=== PATIENT | female | born 1985 | race Caucasian/White ===

== ENCOUNTER 2016-04-23 09:00 | Emergency (ER) | payer OTHER ==
--- NOTE | 2016-04-23 11:26 | RAD ---
INDICATION: Cough. COMPARISON: Comparison is made with a prior chest x-ray study from March 04, 2016. TECHNIQUE: Dual-energy PA and lateral views of the chest were obtained. FINDINGS: The heart is within normal limits in size. Mediastinal and hilar contours appear within normal limits. The lungs are clear. There has been interval resolution of the previously noted right middle lobe infiltrate. No pleural effusion is seen. IMPRESSION: NO EVIDENCE FOR ACUTE FINDING, INTERVAL RESOLUTION OF RIGHT MIDDLE LOBE INFILTRATE.
[2016-04-23] MEDS ORDERED: Ketorolac INJ* 30 MG/ML 1 ML VIAL IV PUSH ONE (11:49)
[2016-04-23] MEDS ORDERED: Ketorolac INJ* 30 MG/ML 1 ML VIAL ONE (11:52)
[2016-04-23 11:58] LABS: Hematocrit 39 % (35-47); Mean Corpuscular HGB Conc 33 g/dl (31-36); Mean Corpuscular Hemoglobin 30 pg (27-31); Mean Corpuscular Volume 91 fL (80-97); Mean Platelet Volume 9 um3 (7.4-10.4); Red Blood Count 4.32 10^6/ul (4.0-5.4); Red Cell Distribution Width 15 % (10.5-15); White Blood Count 3.7 10^3/ul (3.5-10.8)
[2016-04-23 12:10] LABS: BUN/Creatinine Ratio 12.2 (8-20); Calcium 8.6 mg/dL (8.6-10.3); EGFR African American 106.8 (>60); Globulin 2.5 g/dL (2-4); Potassium 3.3 mmol/L (3.5-5.0); Total Bilirubin 0.4 mg/dL (0.2-1.0); Total Protein 6.5 g/dL (6.4-8.9)
[2016-04-23] MEDS ORDERED: Iohexol 350* (CONTRAST) 500 ML MDV IV ONE (13:04)
--- NOTE | 2016-04-23 14:22 | RAD ---
INDICATION: Chest pain. Short of breath. Evaluate for pulmonary embolus. COMPARISON: Chest x-ray April 23, 2016; CT chest March 25, 2016 TECHNIQUE: Axial source images were obtained from the thoracic inlet to the hemidiaphragms following administration of [address] angiographic technique was utilized. Coronal and sagittal reconstructed images were acquired. CHEST FINDINGS: Neck/thyroid: The visualized neck to include the thyroid appear normal. Chest wall: There are no acute abnormalities of the bony thorax or chest wall. There is no supraclavicular, infraclavicular, or axillary lymphadenopathy. Lungs : There are no pulmonary parenchymal masses or infiltrates. The pulmonary interstitium appears normal. There are no endobronchial lesions. Cardiomediastinal structures: There is no CT evidence of acute pulmonary embolic disease. The heart is normal in size. There is no pericardial effusion. There is no evidence of aortic aneurysm or dissection. There is no mediastinal or hilar adenopathy. The esophagus appears normal. Pleura : There are no pleural-based masses or effusions. Other: None. IMPRESSION: NO CT EVIDENCE OF ACUTE PULMONARY EMBOLIC DISEASE. LUNGS CLEAR.
[2016-04-23] MEDS ORDERED: predniSONE TAB* 20 MG PO ONE (14:25)
[2016-04-23] MEDS ORDERED: Albuterol HFA INHALER* 8 gm MDI INH ONE (14:25)
--- NOTE | 2016-04-23 15:19 | ED ---
ILazaro,Franchesca, scribed for Orestes Shine MD on 04/23/16 at 1229 . Shortness of Breath - HPI Summary HPI Summary: This 30 y/o female presents to ED for SOB and CP since a week ago. CP is worse with inspiration and is diffuse throughout chest. She also reports subjective fever, chills, diaphoresis, and productive cough yellow/brown. Pt reports that she was dx with PNA at [facility] a week ago. PMHx includes asthma, GERD, and chronic pain disorder. Pt is current everyday smoker. FHx is negative for any bleeding disorder. - History of Current Complaint Chief Complaint: EDShortnessOfBreath Time Seen by Provider: 04/23/16 09:57 Hx Obtained From: Patient Onset/Duration: Gradual Onset Current Severity: Mild Dyspnea At: Rest Associated Signs & Symptoms: Cough (Productive), Chest Pain Unrelated to Cough - Allergy/Home Medications Allergies/Adverse Reactions: Allergies Allergy/AdvReac Type Severity Reaction Status Date / Time Adhesive Tape AdvReac Severe Rash Verified 04/23/16 09:04 Azithromycin [From Zithromax] AdvReac Intermediate Stomach Verified 04/23/16 09: 04 Cramps Penicillins AdvReac Intermediate UPset Verified 04/23/16 09:04 stomach Sulfa Drugs AdvReac Intermediate Stomach Verified 04/23/16 09:04 Cramps /GI upset cillins* AdvReac Intermediate Stomach Uncoded 04/23/16 09:04 Cramps / GI upset PMH/Surg Hx/FS Hx/Imm Hx Endocrine/Hematology History: Denies: Hx Anticoagulant Therapy, Hx Diabetes, Hx Thyroid Disease Cardiovascular History: Denies: Hx Hypertension, Hx Pacemaker/ICD Respiratory History: Reports: Hx Asthma Denies: Hx Chronic Obstructive Pulmonary Disease (COPD) GI History: Denies: Hx Gall Bladder Disease, Hx Gastroesophageal Reflux Disease, Hx Ulcer History: Denies: Hx Renal Disease Musculoskeletal History: Reports: Hx Tendonitis - hands - followed by [facility], Other Musculoskeletal History - fibromyalgia, chronic pain syndrome Sensory History: Reports: Hx Contacts or Glasses Denies: Hx Hearing Aid Opthamlomology History: Reports: Hx Contacts or Glasses Neurological History: Denies: Hx Dementia, Hx Seizures Psychiatric History: Reports: Hx Panic Disorder - Surgical History Surgery Procedure, Year, and Place: Right Hand Carpal Tunnel surgery Infectious Disease History: No Infectious Disease History: Denies: Hx Clostridium Difficile, Hx Hepatitis, Hx Human Immunodeficiency Virus (HIV), Hx of Known/Suspected MRSA, Hx Shingles, Hx Tuberculosis, Hx Known/ Suspected VRE, Hx Known/Suspected VRSA, History Other Infectious Disease, Traveled Outside the [place] in Last 30 Days - Family History Known Family History: Positive: Other - Parkinson's and Fibromyalgia - Social History Alcohol Use: None Substance Use Type: Reports: None Hx Tobacco Use: Yes Smoking Status (MU): Current Every Day Smoker Type: Cigarettes Amount Used/How Often: less than 1/2 ppd Length of Time of Smoking/Using Tobacco: 6 years Have You Smoked in the Last Year: Yes Review of Systems Positive: Fever - subjective fever, Chills, Skin Diaphoresis Negative: Erythema Negative: Sore Throat Positive: Chest Pain Positive: Shortness Of Breath, Cough - productive with yellow/brown sputum Negative: dysuria, hematuria Negative: Edema Negative: Rash Neurological: Other - negative for dizziness All Other Systems Reviewed And Are Negative: Yes Physical Exam - Summary Physical Exam Summary: Constitutional: Well-developed, Well-nourished, Alert. (-) Distressed Skin: Warm, Dry HENT: Normocephalic; Atraumatic Eyes: Conjunctiva normal Neck: Musculoskeletal ROM normal neck. (-) JVD, (-) Stridor, (-) Tracheal deviation Cardio: Rhythm regular, rate normal, Heart sounds normal; Intact distal pulses; The pedal pulses are 2+ and symmetric. Radial pulses are 2+ and symmetric. (-) Murmur Pulmonary/Chest wall: Effort normal. (-) Respiratory distress, (-) Wheezes, (-) Rales Abd: Soft, (-) Tenderness, (-) Distension, (-) Guarding, (-) Rebound Musculoskeletal: (-) Edema Lymph: (-) Cervical adenopathy Neuro: Alert, Oriented x3 Psych: Mood and affect Normal Triage Information Reviewed: Yes Vital Signs On Initial Exam: Initial Vitals Temp Pulse Resp BP Pulse Ox 97.4 F 81 15 95/57 100 04/23/16 09:04 04/23/16 09:04 04/23/16 09:04 04/23/16 09:04 04/23/16 09:04 Vital Signs Reviewed: Yes - [place] Coma Scale Coma Scale Total: 15 Diagnostics - Vital Signs Vital Signs Temp Pulse Resp BP Pulse Ox 04/23/16 11:00 67 18 100 04/23/16 10:30 71 22 85/52 98 04/23/16 10:00 73 26 99/53 97 04/23/16 09:59 98.7 F 74 16 99/53 98 04/23/16 09:45 109 98 04/23/16 09:44 111/76 04/23/16 09:04 97.4 F 81 15 95/57 100 - Laboratory Result Diagrams: 04/23/16 09:45 04/23/16 09:45 Lab Statement: Any lab studies that have been ordered have been reviewed, and results considered in the medical decision making process. - Radiology CXR Xray Interpretation: No Acute Changes - Interval resolution of right middle lobe infiltrate Radiology Interpretation Completed By: Radiologist - CT CTA Chest/thorax CT Interpretation: No Acute Changes CT Interpretation Completed By: Radiologist Course/Dx - Course Assessment/Plan: This 30 y/o female presents to ED for persistent URI with cough , dyspnea, and CP since her dx of PNA a week ago. Pt states that her URI has been persistent without any resolution in spite of abx tx. CXR indicates interval resolution of right middle lobe infiltrate. Elevated D-dimer is indicated in blood work. CTA chest/thorax has been ordered in order to r/o PE, and is indicated negative. Pt is discharged with nebulizer solution and outpatient f/u with her primary care provider. - Diagnoses Provider Diagnoses: Bronchitis Discharge - Discharge Plan Condition: Stable Disposition: HOME Patient Education Materials: Acute Bronchitis (ED), Ipratropium/Albuterol (By breathing) Referrals: Gus Liu MD [Primary Care Provider] - 2 Days The documentation as recorded by the Lazaro garcia Soohyun accurately reflects the service I personally performed and the decisions made by , Orestes Shine MD.
[2016-04-23 15:55] VITALS: BP 104/64
== END 2016-04-23 15:41 | disposition home or self-care (01) ==
LOC: ED 09:00
DX: J40 Bronchitis, not specified as acute or chronic (principal); F17.210 Nicotine dependence, cigarettes, uncomplicated; J45.909 Unspecified asthma, uncomplicated; K21.9 Gastro-esophageal reflux disease without esophagitis; G89.29 Other chronic pain; Z88.0 Allergy status to penicillin; Z88.2 Allergy status to sulfonamides
CPT/HCPCS: 36415; 71020; 71275; 80053; 84484; 85027; 85379; 94640; 96374; 99283; A9270-GY; J1885; J7512; Q9967

== ENCOUNTER 2017-06-19 14:13 | Emergency (ER) | payer OTHER ==
[2017-06-19 15:08] VITALS: BP 140/75
[2017-06-19 15:28] LABS: Urine Appearance Cloudy; Urine Blood 3+ (Negative); Urine Color Yellow; Urine Ketones Trace (Negative); Urine Protein 2+(100 mg/dL) (Negative); Urine Specific Gravity 1.027 (1.010-1.030); Urine Urobilinogen Negative (Negative)
[2017-06-19] MEDS ORDERED: Metoclopramide IV* 5 MG/ML 2 ML VIAL IV SLOW PU ONE (15:39)
[2017-06-19] MEDS ORDERED: Morphine INJ* 4 MG/ML 1 ML SYRINGE (NEW SYRINGE VERSION) IV ONE (15:39)
--- NOTE | 2017-06-19 15:50 | RAD ---
INDICATION: Left lower quadrant pain COMPARISON: None TECHNIQUE: Longitudinal and transverse transvaginal scans of the pelvis were obtained. FINDINGS: Uterus: The uterus is normal in size. There are no focal masses. The uterus measures 9.4 x 4.6 x 5.0 cm. Endometrial thickness: The endometrial thickness is measured at 0.3 cm. . Free fluid: There is no significant free fluid . Ovaries: The ovaries are normal in size. The right ovary measures 4.4 x 3.1 x 3.4 cm. The left ovary measures 4.5 x 3.0 x 2.8 cm. There are multiple small follicles. Doppler interrogation demonstrates flow to each ovary. Other: None IMPRESSION: NORMAL PELVIC SONOGRAM.
[2017-06-19 16:16] LABS: ABS Basophils 0 10^3/ul (0-0.2); ABS Eosinophils 0 10^3/ul (0-0.6); ABS Monocytes 0.7 10^3/ul (0-0.8); ABS Neutrophils 6.6 10^3/ul (1.5-7.7); ABS Nucleated RBC 0 10^3/ul; Eosinophil % 0.4 % (0-6); Hematocrit 37 % (35-47); Hemoglobin 12.4 g/dl (12.0-16.0); Lymphocyte % 11.7 % (25-47); Mean Corpuscular HGB Conc 33 g/dl (31-36); Mean Corpuscular Hemoglobin 30 pg (27-31); Mean Corpuscular Volume 89 fL (80-97); Mean Platelet Volume 8 um3 (7.4-10.4); Nucleated Red Blood Cells % 0; Platelet Count 188 10^3/ul (150-450); Red Cell Distribution Width 17 % (10.5-15); White Blood Count 8.3 10^3/ul (3.5-10.8)
--- NOTE | 2017-06-19 17:08 | RAD ---
INDICATION: Left flank abdominal pain and left lower quadrant pain. COMPARISON: Comparison is made with a prior pelvic ultrasound from June 19, [address] of the abdomen and pelvis from September 14, 2015. TECHNIQUE: A CT scan of the abdomen and pelvis was performed without intravenous or oral contrast. Contiguous axial sections were obtained from the lung bases through the symphysis pubis. Images were reconstructed in the coronal and sagittal planes. FINDINGS: There is mild dependent bilateral lower lobe subsegmental atelectasis. No pleural effusion is present. The liver and spleen are within normal limits in size without significant focal abnormality on this noncontrast study. No calcified gallstones are seen. The pancreas appears to be within normal limits in size. The adrenal glands and kidneys are normal in size. No renal calculi or hydronephrosis is seen. The aorta is normal in caliber without significant calcific plaque. No significant enlarged retroperitoneal lymph nodes are seen. The stomach, small and large bowel appear nondistended. The appendix is within normal limits. There is no evidence for diverticulitis or colitis. The uterus is anteverted and normal in size. No free intraperitoneal air or fluid is seen. No significant focal osseous abnormality is seen. IMPRESSION: NO EVIDENCE FOR ACUTE FINDING OR CAUSE FOR THE PATIENT'S ABDOMINAL PAIN IS SEEN.
--- NOTE | 2017-06-19 17:28 | ED ---
GI/ HPI - HPI Summary HPI Summary: 31-year-old female presents with left-sided flank pain and left lower quadrant pain for the past couple hours. She states her pain is increased in intensity but since arriving here has decreased. She states she admits to urgency and frequency. She denies every having this pain before. States she has a history of kidney stones. She denies any previous surgeries. She denies any nausea, vomiting. She denies any fevers. She denies any chest pain or shortness of breath. She states she has been having a period for the past month. She denies any history of STDs. She states she did have PID when she was younger. She denies any chance of . She states pain is sharp in nature. - History of Current Complaint Chief Complaint: EDAbdPain Time Seen by Provider: 06/19/17 14:24 Stated Complaint: ABD/PELVIC PAIN Hx Last Menstrual Period: ended August 30 Pain Intensity: 10 - Allergy/Home Medications Allergies/Adverse Reactions: Allergies Allergy/AdvReac Type Severity Reaction Status Date / Time Adhesive Tape AdvReac Severe Rash Verified 04/23/16 09:04 MS Azithromycin AdvReac Intermediate Stomach Verified 04/23/16 09:04 [From Zithromax] Cramps MS Penicillins [Penicillins] AdvReac Intermediate UPset Verified 04/23/16 09:04 stomach MS Sulfa Drugs [Sulfa Drugs] AdvReac Intermediate Stomach Verified 04/23/16 09: 04 Cramps /GI upset cillins* AdvReac Intermediate Stomach Uncoded 04/23/16 09:04 Cramps / GI upset PMH/Surg Hx/FS Hx/Imm Hx Endocrine/Hematology History: Denies: Hx Anticoagulant Therapy, Hx Diabetes, Hx Thyroid Disease Cardiovascular History: Denies: Hx Hypertension, Hx Pacemaker/ICD Respiratory History: Reports: Hx Asthma Denies: Hx Chronic Obstructive Pulmonary Disease (COPD) GI History: Denies: Hx Gall Bladder Disease, Hx Gastroesophageal Reflux Disease, Hx Ulcer History: Denies: Hx Renal Disease Musculoskeletal History: Reports: Hx Tendonitis - hands - followed by [facility], Other Musculoskeletal History - fibromyalgia, chronic pain syndrome Sensory History: Reports: Hx Contacts or Glasses Denies: Hx Hearing Aid Opthamlomology History: Reports: Hx Contacts or Glasses Neurological History: Denies: Hx Dementia, Hx Seizures Psychiatric History: Reports: Hx Panic Disorder - Surgical History Surgery Procedure, Year, and Place: bilat [facility] Infectious Disease History: No Infectious Disease History: Denies: Hx Clostridium Difficile, Hx Hepatitis, Hx Human Immunodeficiency Virus (HIV), Hx of Known/Suspected MRSA, Hx Shingles, Hx Tuberculosis, Hx Known/ Suspected VRE, Hx Known/Suspected VRSA, History Other Infectious Disease, Traveled Outside the [place] in Last 30 Days - Family History Known Family History: Positive: Other - Parkinson's and Fibromyalgia - Social History Alcohol Use: None Substance Use Type: Reports: None Hx Tobacco Use: Yes Smoking Status (MU): Current Every Day Smoker Type: Cigarettes Amount Used/How Often: less than 1/2 ppd Length of Time of Smoking/Using Tobacco: 6 years Have You Smoked in the Last Year: Yes Review of Systems Negative: Fever Negative: Chest Pain Negative: Shortness Of Breath Positive: Abdominal Pain Positive: flank pain. Negative: dysuria All Other Systems Reviewed And Are Negative: Yes Physical Exam Triage Information Reviewed: Yes Vital Signs On Initial Exam: Initial Vitals Temp Pulse Resp BP Pulse Ox 98.1 F 70 26 143/80 100 06/19/17 14:15 06/19/17 14:15 06/19/17 14:15 06/19/17 14:15 06/19/17 14:15 Vital Signs Reviewed: Yes Appearance: Positive: Well-Appearing Skin: Positive: Warm, Dry Head/Face: Positive: Normal Head/Face Inspection Eyes: Positive: Normal, EOMI, JAHAIRA, Conjunctiva Clear ENT: Positive: Normal ENT inspection, Pharynx normal, TMs normal Respiratory/Lung Sounds: Positive: Clear to Auscultation, Breath Sounds Present Cardiovascular: Positive: Normal, RRR Abdomen Description: Positive: Soft, CVA Tenderness (L), Other: - tenderness LLQ Bowel Sounds: Positive: Present Musculoskeletal: Positive: Normal Neurological: Positive: Normal Psychiatric: Positive: Normal Diagnostics - Vital Signs Vital Signs Temp Pulse Resp BP Pulse Ox 06/19/17 16:16 18 06/19/17 14:58 97.7 F 78 18 140/75 100 06/19/17 14:15 98.1 F 70 26 143/80 100 - Laboratory Lab Results: Lab Results 06/19/17 06/19/17 06/19/17 Range/Units 14:42 14:42 14:42 WBC Cancelled RBC Cancelled Hgb Cancelled Hct Cancelled MCV Cancelled MCH Cancelled MCHC Cancelled RDW Cancelled Plt Count Cancelled MPV Cancelled Neut % (Auto) Cancelled Lymph % (Auto) Cancelled [place] % (Auto) Cancelled Eos % (Auto) Cancelled Baso % (Auto) Cancelled Absolute Neuts (auto) Cancelled Absolute Lymphs (auto) Cancelled Absolute Monos (auto) Cancelled Absolute Eos (auto) Cancelled Absolute Basos (auto) Cancelled Absolute Nucleated RBC Cancelled CBC Comment Cancelled Nucleated RBC % Cancelled Diff Slide Review Cancelled Hypogranular Platelets Cancelled Clumped Platelets Cancelled Large Platelets Cancelled Giant Platelets Cancelled Sodium 139 (133-145) mmol/L Potassium TNP Chloride 108 (101-111) mmol/L Carbon Dioxide 18 L (22-32) mmol/L Anion Gap 13 H (2-11) mmol/L BUN 13 (6-24) mg/dL Creatinine 0.86 (0.51-0.95) mg/dL Est GFR ( Amer) 100.3 (>60) Est GFR (Non-Af Amer) 78.0 (>60) BUN/Creatinine Ratio 15.1 (8-20) Glucose 112 H (70-100) mg/dL Calcium 9.5 (8.6-10.3) mg/dL Total Bilirubin 0.80 (0.2-1.0) mg/dL AST TNP ALT 16 (7-52) U/L Alkaline Phosphatase 49 (34-104) U/L C-React Prot High Sens 0.39 mg/L Total Protein 7.1 (6.4-8.9) g/dL Albumin 4.5 (3.2-5.2) g/dL Globulin 2.6 (2-4) g/dL Albumin/Globulin Ratio 1.7 (1-3) Lipase 15 (11.0-82.0) U/L Beta HCG, Quant 0.70 mIU/mL Urine Color Yellow Urine Appearance Cloudy Urine pH 8.0 (5-9) Ur Specific [place] 1.027 (1.010-1.030) Urine Protein 2+(100 mg/dl) A (Negative) Urine Ketones Trace A (Negative) Urine Blood 3+ A (Negative) Urine Nitrate Negative (Negative) Urine Bilirubin Negative (Negative) Urine Urobilinogen Negative (Negative) Ur Leukocyte Esterase Trace A (Negative) Urine WBC (Auto) Trace(0-5/hpf) (Absent) Urine RBC (Auto) 3+(>10/hpf) A (Absent) Ur Squamous Epith Cells Present A (Absent) Urine Bacteria Absent (Absent) Urine Glucose Negative (Negative) 06/19/17 06/19/17 Range/Units 16:07 16:07 WBC 8.3 RBC 4.20 Hgb 12.4 Hct 37 MCV 89 MCH 30 MCHC 33 RDW 17 H Plt Count 188 MPV 8 Neut % (Auto) 79.7 Lymph % (Auto) 11.7 L [place] % (Auto) 7.9 H Eos % (Auto) 0.4 Baso % (Auto) 0.3 Absolute Neuts (auto) 6.6 Absolute Lymphs (auto) 1.0 Absolute Monos (auto) 0.7 Absolute Eos (auto) 0 Absolute Basos (auto) 0 Absolute Nucleated RBC 0 CBC Comment Nucleated RBC % 0 Diff Slide Review Hypogranular Platelets Clumped Platelets Large Platelets Giant Platelets Sodium (133-145) mmol/L Potassium 4.0 Chloride (101-111) mmol/L Carbon Dioxide (22-32) mmol/L Anion Gap (2-11) mmol/L BUN (6-24) mg/dL Creatinine (0.51-0.95) mg/dL Est GFR ( Amer) (>60) Est GFR (Non-Af Amer) (>60) BUN/Creatinine Ratio (8-20) Glucose (70-100) mg/dL Calcium (8.6-10.3) mg/dL Total Bilirubin (0.2-1.0) mg/dL AST 23 ALT (7-52) U/L Alkaline Phosphatase (34-104) U/L C-React Prot High Sens mg/L Total Protein (6.4-8.9) g/dL Albumin (3.2-5.2) g/dL Globulin (2-4) g/dL Albumin/Globulin Ratio (1-3) Lipase (11.0-82.0) U/L Beta HCG, Quant mIU/mL Urine Color Urine Appearance Urine pH (5-9) Ur Specific [place] (1.010-1.030) Urine Protein (Negative) Urine Ketones (Negative) Urine Blood (Negative) Urine Nitrate (Negative) Urine Bilirubin (Negative) Urine Urobilinogen (Negative) Ur Leukocyte Esterase (Negative) Urine WBC (Auto) (Absent) Urine RBC (Auto) (Absent) Ur Squamous Epith Cells (Absent) Urine Bacteria (Absent) Urine Glucose (Negative) Result Diagrams: 06/19/17 16:07 06/19/17 16:07 Lab Statement: Any lab studies that have been ordered have been reviewed, and results considered in the medical decision making process. - CT abd CT Interpretation: No Acute Changes CT Interpretation Completed By: Radiologist - Ultrasound No standard instances Ultrasound Interpretation: No Acute Changes Ultrasound Interpretation Completed By: Radiologist GIGU Course/Dx - Course Course Of Treatment: 31-year-old female presents with left-sided flank pain and left lower quadrant pain for the past couple hours. She states her pain is increased in intensity but since arriving here has decreased. She states she admits to urgency and frequency. She denies every having this pain before. States she has a history of kidney stones. She denies any previous surgeries. She denies any nausea, vomiting. She denies any fevers. She denies any chest pain or shortness of breath. She states she has been having a period for the past month. She denies any history of STDs. She states she did have PID when she was younger. She denies any chance of . She states pain is sharp in nature. on exam CVA tenderness left. Left lower quadrant pain. Ultrasound normal. CT normal. Labs within normal limits. Explained could have passed a kidney stone and that would explain pain. We'll have follow-up with primary. Patient understands, agrees with plan. - Diagnoses Differential Diagnoses - Female: Ovarian Cyst, Urinary Tract Infection, Ureteral Calculi Provider Diagnoses: Abdominal pain Discharge - Discharge Plan Condition: Good Disposition: HOME Patient Education Materials: Acute Abdominal Pain (ED) Referrals: Gus Liu MD [Primary Care Provider] - Additional Instructions: Take Tylenol or ibuprofen for pain every 6 hours Follow up with primary within 5 days Return to ED if develop any new or worsening symptoms
== END 2017-06-19 17:42 | disposition home or self-care (01) ==
LOC: ED 14:13
DX: R10.2 Pelvic and perineal pain (principal); R10.9 Unspecified abdominal pain; F17.210 Nicotine dependence, cigarettes, uncomplicated
CPT/HCPCS: 36415; 74176; 76830; 80053; 81003; 81015; 83690; 84702; 85025; 86141; 87086; 87480; 87491; 87510; 87591; 87661; 96374; 96375; 99282; J2270; J2765

== ENCOUNTER 2017-10-18 09:20 | Emergency (ER) | payer OTHER ==
--- OUTSIDE RECORDS SUMMARY | 2017-10-18 10:03 | XMS REPORT ---
:1985 External Reference #:[id number] Author Organization [facility] Address [address] [place] [address] Phone [phone] Care Team Providers Name Role Phone Gus Liu MD Primary Care Physician Unavailable Payers Type Date Identification Numbers Payment Provider Subscriber Commercial Effective: Policy Number: [id number] Kal Borrero [address] 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 [employer] Cigarette Use Light tobacco smoker (10 or fewer cigarettes/day) ETOH Use Never used alcohol Recreational Drug Use Denies Drug Use Smoking Patient is a current smoker, smokes every day Exercise Type/Frequency Exercises regularly Exercise Type/Frequency Running Exercise Type/Frequency Strength Training Allergies, Adverse Reactions, Alerts Date Description Reaction Status Severity Comments 12/11/2002 Penicillin active upset stomach 09/22/2015 Sulfa active 09/22/2015 Azithromycin active 04/24/2016 Adhesives active Medications Medication Date Status Form Strength Qnty SIG Indications Ordering Provider Escitalopram 09/24 Active Tablets 10mg 90tab 1 by mouth F33.1 Gus s every day MD Noe Nicotine Step 09/03 Active Patches 7mg/24HR 30uni 1 patch daily Z72.0 Shawnti 24HR MICHAELLE Lugo-C Qvar 04/17 Active Aerosol 80mcg/Act 2unit inhale 2 s puffs by [place] mouth 2 times , per day for asthma Metronidazole 03/05 Active Cream 0.75% 90gm 1 apply to L71.9 affected area [place] twice a day , Nexplanon 08/06 Active Implant 68mg inserted September DAISY Gan Buspirone HCL 03/06 Active Tablets 15mg 60tab 1 tab by F41.9 Gus s mouth three [place] times a day , as needed for anxiety Proair HFA 01/02 Active Aerosol 108(90Bas 18uni 1-2 puffs R06.02 e) ts every 6 hours [place] mcg/Act as needed , Omeprazole [address] 20mg 30cap 1 by mouth Gus / s every day MD Noe Dexilant 09/[address] 60mg 30cap 1 tab by K25.9 Gus s mouth every [place] - day , 09/24 Nicotine Step 05/01 Hx Patches 14mg/24HR 30uni 1 daily every Z72.0 Gus 24HR ts morning Noe - , 09/03 Benzonatate 05/01 Hx Capsules 200mg 60cap 1 by mouth J06.9 Gus s three times a Heetder - day for cough , 09/03 Lexapro 03/05 Hx Tablets 10mg 30tab 1 tab by F41.9 Gus s mouth every [place] - morning , 09/03 Clindamycin 03/05 Hx Capsules 300mg 21cap take 1 J31.0 Gus HCL /2016 s capsule by [place] - mouth every 8 , 04/17 hours for days Oxycodone-Acet 11/06 Hx Tablets 5-325mg 20tab 1 by mouth K02.9 Gus aminophen s every 4 hours [place] - as needed , 03/05 severe pain /2016 Clindamycin 09/06 Hx Capsules 300mg 20cap 1 tab by K02.9 Gus HCL /2016 s mouth twice a [place] - day , 03/05 Nicotrol 09/06 Hx Inhaler 10mg 336un inhale 1 F17.210 Gus /2016 its cartridge [place] - inhaled , 03/05 orally repeatedly like a cigarette 16 times per day as needed for smoking cessation Pulmicort 09/06 Hx Aerosol 180mcg/Ac 1unit Inhale 1 puff Gus Flexhaler /2016 t s by mouth 2 [place] - times per day , 04/17 for asthma /2017 Clindamycin 08/06 Hx Capsules 300mg 40cap 1 tab by Denice HCL s mouth four Aleah, - times a day 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 08/06 Naprosyn 04/23 Hx Tablets 250mg 30tab Q8H prn For s Pain Scale - 6-10 08/06 Deltasone 04/23 Hx Tablets 50mg 5tabs Every Day - 08/06 Ventolin 04/23 Hx Nebulizer 0.083% 60uni Q4H ts - 08/06 Doxycycline 04/17 Hx Capsules 100mg 20cap 1 take by J18.1 Gus Hyclate s mouth capsule [place] - 2 times per , 08/06 day for days for infection Flonase 04/17 Hx Suspension 50mcg/Act 1unit inhale one J01.90 Gus Allergy Relief s spray in each [place] - nostril at , 08/06 bedtime Norgestimate-E 03/21 Hx Tablets 0.25-35mg 28tab Take daily as N92.0 Gus Estradiol /2015 -mcg s directed for [place] - 2 months , 08/06 Lexapro 03/06 Hx Tablets 10mg 30tab 1 tab by F41.9 Gus s mouth every [place] - morning , 08/06 Norgestimate-E 01/02 Hx Tablets 0.25-35mg 28tab Take daily as N92.0 Gus Estradiol /2015 -mcg s directed for [place] - 2 months , 03/06 Doxycycline 01/[address] 100mg 20tab Take 1 tablet Gus Hyclate s by mouth 2 [place] - times per day , 04/17 for 10 days /2016 for lower respiratory tract infection Tramadol HCL 10/18 Hx Tablets 50mg 30tab 1 tab by Gus s mouth three [place] - times a day , 01/11 as needed pain Tamsulosin HCL 10/18 Hx Capsules 0.4mg 14cap Take 1 Gus s capsule by [place] - mouth daily , 01/11 and urine Ciprofloxacin 09/21 Hx Tablets 500mg 20tab take 1 tablet N39.0 Gus HCL s by mouth [place] - every 12 , 03/06 hours for days for infection Nortriptyline 09/18 Hx Capsules 10mg Every Day Unknown - 08/06 Percocet 09/13 Hx Tablets 5-325mg 10tab Q6H prn For s Pain - 01/02 Valium 09/13 Hx Tablets 5mg 10tab Q6H prn For s Pain - 08/06 Zyrtec Allergy 08/28 Hx Tablets 10mg Every Day - 03/05 Paxil 10/13 Hx Tablets 20mg 30tab use 1 tab a Denice s day Reinaldo, - M.DLashonda 09/21 Excuse From 08/07 Hx patient is Denice Woods being treated Reinaldo, - for M.D. 08/16 mononucleosis . Excuse From 08/07 Hx patient was Denice Woods seen here for Reinaldo, - abdominal M.D. 08/16 pain. Excuse From 07/24 Hx patient was Denice Woods seen here for Reinaldo, - follow up M.D. 08/07 care. she may return to school on 07/25. Gentamycin 04/29 Hx Solution 3mg/ml 5ml 2 drops qid Denice Guerrero until clear Reinaldo - M.DLashonda 06/22 Excuse From 04/16 Hx out of school [phone] from:04-12-03 Valarie Adkins, 06/22 return to .D. school on:04-18-03 due to symptoms of flu Ortho Evra 02/17 Hx 3unit one patch Milagros Contraceptive /2002 s once per week A. Patch - for 3 weeks, Sara, 09/21 then one week [facility] /2015 without patch each month Ortho Evra 02/17 Hx 1unit use as Milagros Extra Patch /2002 s directed A. - Sara, 09/21 [facility] Metrogel 02/03 Hx Cream 70Gra one Milagros Vaginal Cream ms applicatorful A. - vaginally bid Sara, 06/22 x 5 days [facility] No School 02/03 Hx 01/27/03-01/07 Milagros due to A. - illness Sara, 06/22 [facility] Albuterol 12/24 Hx Inhaler 1unit two puffs up R06.02 Gus s to four times [place] - a day MD jose 01/02 Excuse From 09/08 Hx Out Of School [facility] From:09/07/02 Reinaldo, - M.D. 02/02 Return To School On:09/09/02 Bactrim DS 09/04 Hx Tablets 14tab One bid X 7 Roseann s Days P. - Blegen, 02/02 M.D. Excuse From 09/04 Hx Was Seen For [facility] Acute Visit Reinaldo, - For Abdominal M.D. 02/02 Pain Zoloft 04/15 Hx Tablets 50mg 30tab One qd Yeny Betty Sorensen NP 02/02 Excuse From 01/27 Hx She was seen [facility] for acute Soboroff, - problem M.D. 04/15 today. 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 - Blegen, 01/04 M.D. Zithromax 12/21 Hx Tablets 250mg 6tabs 2 On Day One, Then One qd Betty Horton X4 Days [employer] 01/04 gym excuse 12/21 Hx No Gym class this week Betty Horton NP 01/04 Amoxicillin 11/02 Hx 500 30uni One tid X 10 ts Days Less - , M.D. 01/04 Nortriptyline Hx Capsules 10mg 1 tab by Unknown HCL /0000 mouth every - night 03/06 Percocet Hx Tablets 5-325mg Unknown /0000 - 01/11 Valium Hx Tablets 2mg Unknown /0000 - 01/11 Levofloxacin Hx Tablets 750mg Unknown /0000 - 08/06 Albuterol Hx Nebulizer (2.5mg/3M Unknown Sulfate /0000 L) 0.083% - 08/06 Prednisone Hx Tablets 50mg Unknown /0000 - 08/06 Medications Administered in Office Medication Date Status Form Strength Qnty SIG Indications Ordering Provider TB,Intradermal Administered Injection Gus (PPD, Mantoux) 018 MD Noe TB,Intradermal Administered Injection Denice (PPD, Mantoux) 017 DAISY Gan Immunizations CPT Code Status Date Vaccine Lot # [id number] Given 04/17/2017 Pneumovax 23 (PPSV23) 65+ years or high risk 2 to [id number] 66 year old [address] Given 04/07/2012 Tdap (Adacel) 92647 Refused 03/05/2017 Influenza Virus Vaccine, Quadrivalent, 3 Yr > Quad , Preserv Free Vital Signs Date Vital Result Comment 09/24/2017 Weight 260.00 lb Weight in kg's 117.936 BP Systolic 120 mmHg BP Diastolic 75 mmHg Heart Rate 80 /min Body Temperature 97.7 F O2 % BldC Oximetry 98 % 09/03/2017 Weight 258.00 lb Weight in kg's 117.029 BP Systolic 100 mmHg BP Diastolic 68 mmHg Heart Rate 80 /min Body Temperature 98.3 F O2 % BldC Oximetry 98 % 05/01/2017 Weight 229.00 lb Weight in kg's 103.874 BP Systolic 110 mmHg BP Diastolic 70 mmHg Heart Rate 80 /min Body Temperature 98.5 F Height 64.5 inches 5'4.50" BMI (Body Mass Index) 38.7 kg/m2 Last Menstrual Period [id number] 04/17/2017 BP Systolic 140 mmHg BP Diastolic 80 mmHg Heart Rate 80 /min Body Temperature 98.0 F O2 % BldC Oximetry 99 % 03/05/2017 Weight 216.00 lb Weight in kg's 97.978 BP Systolic 100 mmHg BP Diastolic 62 mmHg Heart Rate 74 /min Body Temperature 98.3 F Respiratory Rate 14 /min 11/22/2016 Weight 206.00 lb Weight in kg's 93.442 BP Systolic 105 mmHg BP Diastolic 60 mmHg Heart Rate 88 /min Body Temperature 97.6 F O2 % BldC Oximetry 98 % 11/06/2016 Weight 202.00 lb Weight in kg's 91.627 BP Systolic 118 mmHg BP Diastolic 62 mmHg Heart Rate 66 /min Body Temperature 98.6 F Respiratory Rate 18 /min O2 % BldC Oximetry 98 % 09/06/2016 Weight 200.00 lb Weight in kg's 90.720 BP Systolic 112 mmHg BP Diastolic 70 mmHg Heart Rate 64 /min Body Temperature 99.1 F Respiratory Rate 20 /min 08/06/2016 Weight 200.00 lb Weight in kg's 90.720 BP Systolic 104 mmHg BP Diastolic 58 mmHg Heart Rate 76 /min Body Temperature 98.4 F Respiratory Rate 18 /min O2 % BldC Oximetry 99 % 05/01/2016 Weight 184.00 lb Weight in kg's 83.462 BP Systolic 96 mmHg BP Diastolic 62 mmHg Heart Rate 100 /min Body Temperature 97.9 F Respiratory Rate 16 /min O2 % BldC Oximetry 99 % 04/23/2016 Weight 181.00 lb Weight in kg's 82.100 BP Systolic 104 mmHg BP Diastolic 64 mmHg Heart Rate 70 /min Body Temperature 98.4 F Respiratory Rate 20 /min Height 65 inches O2 % BldC Oximetry 98 % 04/17/2016 Weight 184.00 lb Weight in kg's 83.462 BP Systolic 96 mmHg BP Diastolic 60 mmHg Heart Rate 83 /min Body Temperature 98.7 F Respiratory Rate 16 /min O2 % BldC Oximetry 99 % 04/11/2016 Weight 181.00 lb Weight in kg's 82.102 BP Systolic 103 mmHg BP Diastolic 60 mmHg Heart Rate 80 /min Body Temperature 99.5 F O2 % BldC Oximetry 99 % 03/21/2016 Weight 175.00 lb Weight in kg's 79.380 BP Systolic 92 mmHg BP Diastolic 56 mmHg Heart Rate 55 /min Body Temperature 97.7 F Respiratory Rate 16 /min O2 % BldC Oximetry 98 % 03/14/2016 Weight 167.00 lb Weight in kg's 75.751 BP Systolic 100 mmHg BP Diastolic 64 mmHg Heart Rate 84 /min Body Temperature 99.1 F O2 % BldC Oximetry 99 % 03/06/2016 Weight 163.00 lb Weight in kg's 73.937 BP Systolic 108 mmHg BP Diastolic 72 mmHg Heart Rate 89 /min Body Temperature 98.1 F Respiratory Rate 18 /min O2 % BldC Oximetry 98 % 01/12/2016 Weight 169.00 lb Weight in kg's 76.658 BP Systolic 96 mmHg BP Diastolic 62 mmHg Heart Rate 88 /min Body Temperature 99.1 F Respiratory Rate 20 /min O2 % BldC Oximetry 99 % 01/03/2016 Weight 166.00 lb Weight in kg's 75.298 BP Systolic 90 mmHg BP Diastolic 56 mmHg Heart Rate 104 /min Body Temperature 99.4 F O2 % BldC Oximetry 99 % 10/19/2015 Weight 176.00 lb Weight in kg's 79.834 BP Systolic 100 mmHg BP Diastolic 58 mmHg Heart Rate 96 /min Body Temperature 99.1 F 09/29/2015 Weight 181.00 lb Weight in kg's 82.102 BP Systolic 117 mmHg BP Diastolic 59 mmHg Heart Rate 83 /min Last Menstrual Period [id number] 09/27/2015 Weight 174.00 lb Weight in kg's 78.926 BP Systolic 118 mmHg BP Diastolic 74 mmHg Heart Rate 73 /min Body Temperature 98.9 F 09/22/2015 Weight 178.00 lb Weight in kg's 80.741 BP Systolic 116 mmHg BP Diastolic 75 mmHg Heart Rate 90 /min 11/11/2003 Weight 183.00 lb Weight in kg's 83.009 BP Systolic 120 mmHg BP Diastolic 80 mmHg Heart Rate 105 /min Weight Percentile >95th 10/14/2003 Weight 181.00 lb Weight in kg's 82.102 BP Systolic 100 mmHg BP Diastolic 58 mmHg Heart Rate 80 /min Respiratory Rate 18 /min Weight Percentile >95th 08/17/2003 Weight 176.00 lb Weight in kg's 79.834 BP Systolic 122 mmHg BP Diastolic 70 mmHg Body Temperature 99.5 F Weight Percentile >95th 08/08/2003 Weight 183.00 lb Weight in kg's 83.009 Body Temperature 98.7 F Weight Percentile >95th 07/25/2003 Weight 178.00 lb Weight in kg's 80.741 Body Temperature 97.8 F Weight Percentile >95th 06/23/2003 Weight 182.00 lb Weight in kg's 82.555 BP Systolic 120 mmHg BP Diastolic 70 mmHg Body Temperature 97.8 F Weight Percentile >95th 06/01/2003 Weight 181.00 lb Weight in kg's 82.102 Body Temperature 98.4 F Weight Percentile >95th 04/29/2003 Weight 179.00 lb Weight in kg's 81.194 Body Temperature 98.7 F Weight Percentile >95th 04/16/2003 Weight 180.00 lb Weight in kg's 81.648 Body Temperature 97.8 F Weight Percentile >95th 02/17/2003 Weight 173.00 lb Weight in kg's 78.473 Body Temperature 97.6 F Weight Percentile >95th 02/03/2003 Weight 172.00 lb Weight in kg's 78.019 Weight Percentile >95th 02/02/2003 Weight 172.00 lb Weight in kg's 78.019 BP Systolic 120 mmHg BP Diastolic 60 mmHg Body Temperature 97.9 F Weight Percentile >95th Last Menstrual Period [id number] 12/24/2002 Weight 173.00 lb Weight in kg's 78.473 BP Systolic 100 mmHg BP Diastolic 60 mmHg Heart Rate 60 /min Respiratory Rate 18 /min Weight Percentile >95th 12/11/2002 Weight 172.00 lb Weight in kg's 78.019 Body Temperature 99.5 F Weight Percentile >95th 09/08/2002 Weight 169.00 lb Weight in kg's 76.658 BP Systolic 126 mmHg BP Diastolic 78 mmHg Body Temperature 97.6 F Weight Percentile >95th 09/04/2002 Weight 168.00 lb Weight in kg's 76.205 BP Systolic 110 mmHg BP Diastolic 80 mmHg Body Temperature 99.7 F Weight Percentile >95th 04/23/2002 Weight 158.00 lb Weight in kg's 71.7 BP Systolic 110 mmHg BP Diastolic 70 mmHg Height 63.75 inches Height Percentile 52 % Weight Percentile >95th BMI (Body Mass Index) 27.3 kg/m2 03/19/2002 Weight 162.00 lb Weight in kg's 73.5 BP Systolic 110 mmHg BP Diastolic 70 mmHg Weight Percentile >95th 02/17/2002 Weight 162.50 lb Weight in kg's 73.7 Heart Rate 88 /min Body Temperature 97.0 F Weight Percentile >95th 01/27/2002 Weight 179.00 lb Weight in kg's 81.2 Weight Percentile >95th Right Visual Acuity Distance 20/20 Left Visual Acuity Distance 20/20 01/04/2002 Weight 169.00 lb Weight in kg's 76.7 Body Temperature 96.9 F Weight Percentile >95th 12/21/2001 Weight 168.00 lb Weight in kg's 76.2 BP Systolic 110 mmHg BP Diastolic 80 mmHg Heart Rate 80 /min Body Temperature 97.2 F Respiratory Rate 18 /min Weight Percentile >95th 11/02/2001 Weight 174.00 lb BP Systolic 110 mmHg BP Diastolic 80 mmHg Heart Rate 78 /min Body Temperature 97.7 F Respiratory Rate 18 /min Weight Percentile >95th Results Test Date Test Result H/L Range Note Rubeola Measles Igg AB 09/03/2017 Rubeola (Measles) IgG Positive 1 Antibody Rubeola IgG Antibody Index 3.3 2 Laboratory test finding 09/03/2017 Rubella Screen Immune Immune 3 Comp Metabolic Panel 09/03/2017 Sodium 140 mmol/L 139-145 Potassium 4.0 mmol/L 3.5-5.0 Chloride 108 mmol/L 101-111 Co2 Carbon Dioxide 25 mmol/L 22-32 Anion Gap 7 mmol/L 2-11 Glucose 113 mg/dL High 70-100 Blood Urea Nitrogen 12 mg/dL 6-24 Creatinine 0.90 mg/dL 0.51-0.95 BUN/Creatinine Ratio 13.3 8-20 Calcium 9.1 mg/dL 8.6-10.3 Total Protein 6.8 g/dL 6.4-8.9 Albumin 4.2 g/dL 3.2-5.2 Globulin 2.6 g/dL 2-4 Albumin/Globulin Ratio 1.6 1-3 Total Bilirubin 0.60 mg/dL 0.2-1.0 Alkaline Phosphatase 64 U/L 34-104 Alt 15 U/L 7-52 Ast 16 U/L 13-39 Egfr Non- 73.5 >60 Egfr 94.5 >60 4 Lipid Profile (Trig/Chol/HDL) 09/03/2017 Triglycerides 93 mg/dL 5 Cholesterol 179 mg/dL 6 HDL Cholesterol 36.2 mg/dL 7 LDL Cholesterol 124 mg/dL 8 Laboratory test 09/03/2017 TSH (Thyroid Stim 0.79 mcIU/mL 0.34-5.60 9 finding Horm) Laboratory test 06/20/2017 Clotest SEE RESULT 10, 11 finding BELOW Laboratory test 06/20/2017 Surgical Pathology SEE RESULT 12, 13 finding BELOW Urine Culture And 06/19/2017 Urine Culture SEE RESULT 14, 15 Sensitivities BELOW Urinalysis Profile 06/19/2017 Urine Color Yellow 14 Urine Appearance Cloudy 14 Urine Specific Lapaz 1.027 1.010-1.030 14 Urine pH 8.0 5-9 14 Urine Urobilinogen Negative Negative 14 Urine Ketones Trace Negative 14 Urine Protein 2+(100 mg/dL) Negative 14 Urine Leukocytes Trace Negative 14 Urine Blood 3+ Negative 14 Urine Nitrite Negative Negative 14 Urine Bilirubin Negative Negative 14 Urine Glucose Negative Negative 14 Urine White Blood Cell Trace(0-5/hpf) Absent 14 Urine Red Blood Cell 3+(>10/hpf) Absent 14 Urine Bacteria Absent Absent 14 Urine Squamous Epithelial Cell Present Absent 14 Laboratory test finding 06/19/2017 Lipase 15 U/L 11.0-82.0 14 CRP High Sensitivity 0.39 mg/L 14, 16 Comp Metabolic Panel 06/19/2017 Sodium 139 mmol/L 133-145 14 Chloride 108 mmol/L 101-111 14 Co2 Carbon Dioxide 18 mmol/L Low 22-32 14 Glucose 112 mg/dL High 70-100 14 Blood Urea Nitrogen 13 mg/dL 6-24 14 Creatinine 0.86 mg/dL 0.51-0.95 14 BUN/Creatinine Ratio 15.1 8-20 14 Calcium 9.5 mg/dL 8.6-10.3 14 Total Protein 7.1 g/dL 6.4-8.9 14 Albumin 4.5 g/dL 3.2-5.2 14 Globulin 2.6 g/dL 2-4 14 Albumin/Globulin Ratio 1.7 1-3 14 Total Bilirubin 0.80 mg/dL 0.2-1.0 14 Alkaline Phosphatase 49 U/L 34-104 14 Alt 16 U/L 7-52 14 Egfr Non- 78.0 >60 14 Egfr 100.3 >60 14, 17 Potassium TNP mmol/L 3.5-5.0 14, 18 Anion Gap 13 mmol/L High 2-11 14 Ast TNP U/L 13-39 14, 19 Laboratory test finding 06/19/2017 HCG 0.70 mIU/mL 14, 20 Laboratory test finding 06/19/2017 Potassium Redraw 4.0 mmol/L 3.5-5.0 Ast Redraw 23 U/L 13-39 CBC Auto Diff 06/19/2017 White Blood Count 8.3 10^3/uL 3.5-10.8 Red Blood Count 4.20 10^6/uL 4.0-5.4 Hemoglobin 12.4 g/dL 12.0-16.0 Hematocrit 37 % 35-47 Mean Corpuscular Volume 89 fL 80-97 Mean Corpuscular Hemoglobin 30 pg 27-31 Mean Corpuscular HGB Conc 33 g/dL 31-36 Red Cell Distribution Width 17 % High 10.5-15 Platelet Count 188 10^3/uL 150-450 Mean Platelet Volume 8 um3 7.4-10.4 Abs Neutrophils 6.6 10^3/uL 1.5-7.7 Abs Lymphocytes 1.0 10^3/uL 1.0-4.8 Abs Monocytes 0.7 10^3/uL 0-0.8 Abs Eosinophils 0 10^3/uL 0-0.6 Abs Basophils 0 10^3/uL 0-0.2 Abs Nucleated RBC 0 10^3/uL Granulocyte % 79.7 % 38-83 Lymphocyte % 11.7 % Low 25-47 Monocyte % 7.9 % High 0-7 Eosinophil % 0.4 % 0-6 Basophil % 0.3 % 0-2 Nucleated Red Blood Cells % 0 Laboratory test finding 06/19/2017 Trichomonas Vaginalis Rna Negative Negative 21 Gardnerella/Yeast: Vaginal Dna SEE RESULT BELOW 22 GC/Chlamydia Amplified Rna 06/19/2017 Chlamydia trachomatis Rna Negative Negative Neisseria gonorrhoeae (GC) Rna Negative Negative Lipid Profile (Trig/Chol/HDL) 05/01/2017 Triglycerides 39 mg/dL 23 Cholesterol 182 mg/dL 24 HDL Cholesterol 47.4 mg/dL 25 LDL Cholesterol 127 mg/dL 26 Laboratory test finding 11/22/2016 Throat Culture SEE RESULT BELOW 27, 28 Comp Metabolic Panel 04/23/2016 Sodium 136 mmol/L 133-145 Potassium 3.3 mmol/L Low 3.5-5.0 Chloride 107 mmol/L 101-111 Co2 Carbon Dioxide 24 mmol/L 22-32 Anion Gap 5 mmol/L 2-11 Glucose 90 mg/dL 70-100 Blood Urea Nitrogen 10 mg/dL 6-24 Creatinine 0.82 mg/dL 0.51-0.95 BUN/Creatinine Ratio 12.2 8-20 Calcium 8.6 mg/dL 8.6-10.3 Total Protein 6.5 g/dL 6.4-8.9 Albumin 4.0 g/dL 3.2-5.2 Globulin 2.5 g/dL 2-4 Albumin/Globulin Ratio 1.6 1-3 Total Bilirubin 0.40 mg/dL 0.2-1.0 Alkaline Phosphatase 49 U/L 34-104 Alt 8 U/L 7-52 Ast 13 U/L 13-39 Egfr Non- 83.0 >60 Egfr 106.8 >60 29 Laboratory test finding 04/23/2016 Troponin-I (TnI) 0.00 ng/mL <0.04 30 CBC No Diff 04/23/2016 White Blood Count 3.7 10^3/uL 3.5-10.8 Red Blood Count 4.32 10^6/uL 4.0-5.4 Hemoglobin 13.0 g/dL 12.0-16.0 Hematocrit 39 % 35-47 Mean Corpuscular Volume 91 fL 80-97 Mean Corpuscular Hemoglobin 30 pg 27-31 Mean Corpuscular HGB Conc 33 g/dL 31-36 Red Cell Distribution Width 15 % 10.5-15 Platelet Count 174 10^3/uL 150-450 Mean Platelet Volume 9 um3 7.4-10.4 Laboratory test 04/23/2016 D Dimer Quantitative 314 ng/mL High Less Than 230 31 finding Laboratory Studies 04/23/2016 Carbon Dioxide Level 24 mmol/L 22-32 Chloride Level 107 mmol/L 101-111 Creatinine 0.82 mg/dL 0.51-0.95 D-Dimer, Quantitative 314 ng/mL High 0-230 Estimated GFR () 106.8 Estimated GFR (Non- 83.0 Globulin 2.5 g/dL 2-4 Glucose Level 90 mg/dL 70-100 Hematocrit 39 % 35-47 Hemoglobin 13.0 g/dL 12.0-16.0 Mean Corpuscular Hemoglobin 30 pg 27-31 Mean Corpuscular Hemoglobin Concent 33 g/dL 31-36 Mean Corpuscular Volume 91 fL 80-97 Mean Platelet Volume 9 um3 7.4-10.4 Platelet Count 174 10^3/ul 150-450 Potassium Level 3.3 mmol/L Low 3.5-5.0 Red Blood Count 4.32 10^6/ul 4.0-5.4 Red Cell Distribution Width 15 % 10.5-15 Sodium Level 136 mmol/L 133-145 Total Bilirubin 0.40 mg/dL 0.2-1.0 Total Protein 6.5 g/dL 6.4-8.9 Troponin I 0.00 ng/mL White Blood Count 3.7 10^3/ul 3.5-10.8 Laboratory test finding 04/11/2016 Strep Screen NEG Neg CBC Auto Diff 01/12/2016 White Blood Count 5.2 10^3/uL 3.5-10.8 Red Blood Count 4.11 10^6/uL 4.0-5.4 Hemoglobin 12.6 g/dL 12.0-16.0 Hematocrit 38 % 35-47 Mean Corpuscular Volume 92 fL 80-97 Mean Corpuscular Hemoglobin 31 pg 27-31 Mean Corpuscular HGB Conc 33 g/dL 31-36 Red Cell Distribution Width 15 % 10.5-15 Platelet Count 253 10^3/uL 150-450 Mean Platelet Volume 9 um3 7.4-10.4 Abs Neutrophils 3.1 10^3/uL 1.5-7.7 Abs Lymphocytes 1.5 10^3/uL 1.0-4.8 Abs Monocytes 0.5 10^3/uL 0-0.8 Abs Eosinophils 0.1 10^3/uL 0-0.6 Abs Basophils 0 10^3/uL 0-0.2 Abs Nucleated RBC 0 10^3/uL Granulocyte % 58.5 % 38-83 Lymphocyte % 29.3 % 25-47 Monocyte % 8.7 % 1-9 Eosinophil % 2.7 % 0-6 Basophil % 0.8 % 0-2 Nucleated Red Blood Cells % 0.1 Laboratory test finding 01/12/2016 C Reactive Protein < 1.00 mg/L < 5.00 32 Comp Metabolic Panel 01/12/2016 Sodium 138 mmol/L 133-145 Potassium 4.2 mmol/L 3.5-5.0 Chloride 108 mmol/L 101-111 Co2 Carbon Dioxide 26 mmol/L 22-32 Anion Gap 4 mmol/L 2-11 Glucose 88 mg/dL 70-100 Blood Urea Nitrogen 15 mg/dL 6-24 Creatinine 0.80 mg/dL 0.51-0.95 BUN/Creatinine Ratio 18.8 8-20 Calcium 9.1 mg/dL 8.6-10.3 Total Protein 6.5 g/dL 6.4-8.9 Albumin 4.1 g/dL 3.2-5.2 Globulin 2.4 g/dL 2-4 Albumin/Globulin Ratio 1.7 1-3 Total Bilirubin 0.30 mg/dL 0.2-1.0 Alkaline Phosphatase 38 U/L 34-104 Alt 9 U/L 7-52 Ast 11 U/L Low 13-39 Egfr Non- 85.4 >60 Egfr 109.8 >60 33 Laboratory test 10/19/2015 Urine Culture And SEE RESULT BELOW 34 finding Sensitivities Urine DIP 10/19/2015 Leukocytes ++ Neg Urine Nitrites NEG Neg Urobilinogen NORM Norm Total Protein, Urine NEG Neg Urine pH 5 5-6 Urine Blood 250 High Neg Specific Lapaz 1.02 1.01-1.02 Urine Ketones NEG Neg Urine Bilirubin NEG Neg Urine Glucose NORM Norm Laboratory test finding 09/29/2015 Cytology SEE RESULT BELOW 35 HPV Rna Ww/Reflex Genotype Negative Negative 36 Laboratory test finding 09/29/2015 HCG DIP Test NEG Neg GC/Chlamydia Amplified 09/27/2015 Chlamydia trachomatis Rna Negative Negative Rna Neisseria gonorrhoeae (GC) Rna Negative Negative Urine DIP 09/27/2015 Leukocytes + Neg Urine Nitrites neg Neg Urobilinogen norm Norm Total Protein, Urine neg Neg Urine pH 5 5-6 Urine Blood neg Neg Specific Lapaz n/a Low 1.01-1.02 Urine Ketones neg Neg Urine Bilirubin neg Neg Urine Glucose norm Norm Laboratory test 09/22/2015 Urine Culture And SEE RESULT BELOW 37 finding Sensitivities Urine DIP 09/22/2015 Leukocytes + Neg Urine Nitrites neg Neg Urobilinogen norm Norm Total Protein, Urine neg Neg Urine pH 5 5-6 Urine Blood neg Neg Specific Lapaz n/a Low 1.01-1.02 Urine Ketones neg Neg Urine Bilirubin neg Neg Urine Glucose norm Norm Wet Prep 08/14/2009 Wet Prep NONE SEEN 38 GC/Chlamydia Dna Probe 08/14/2009 GC By Aptima NEGATIVE Negative 39 CHL By Aptima NEGATIVE Negative 40 CBC With Electronic Diff 08/14/2009 White Blood Count 5.2 CUMM 4.8-10.8 Red Cell Count 4.87 CUMM 4.2-5.4 Hemoglobin 14.9 g/dL 12.0-16.0 Hematocrit 44 % 35-47 Mean Corpuscular Volume 90 um3 79-97 Mean Corpuscular Hemoglob 31 pg 27-31 Mean Corpuscular HGB Cone 34 g/dL 32-36 Redcell Distribution WDTH 15 % 10.5-15 Platelet Count 193 CUMM 150-450 Mean Platelet Volume 8.3 um3 7.4-10.4 Gran % 43.7 % 38-83 Lymph % 42.0 % 25-47 Mononuclear % 11.8 % High 1-9 Eosinophil % 2.0 % 0-6 Basophil % 0.5 % 0-2 Abs Lymphs 2.2 1.0-4.8 Abs Mononuclear 0.6 0-0.8 Absolute Neutrophil Count 2.3 1.5-7.7 Abs Eosinophils 0.1 0-0.6 Abs Basophils 0 0-0.2 Comp Metabolic Panel 08/14/2009 Sodium 134 mmol/L Low 135-145 Potassium 3.3 mmol/L Low 3.5-5.0 Chloride 103 mmol/L 101-111 Co2 (Carbon Dioxide) 24.0 mmol/L 22-32 Anion Gap 7.0 mmol/L 2-11 41 Glucose 104 mg/dL High 70-100 42 BUN 8 mg/dL 6-24 Creatinine 0.80 mg/dL 0.50-1.40 One Over Creatinine 1.20 BUN/Creatinine Ratio 10.0 8-20 Calcium 9.5 mg/dL 8.1-9.9 43 Total Protein 7.2 GM/DL 6.2-8.1 Albumin 4.7 GM/DL 3.6-5.4 Globulin 2.5 GM/DL 2-4 Albumin/Globulin Ratio 1.9 1-3 Bilirubin Total 0.8 mg/dL 0.4-1.5 44 Alkaline Phosphatase 85 U/L 30-110 Alt (SGPT) 59 U/L High 14-54 Ast (Sgot) 36 U/L 12-42 eGFR Non- 95.3 > 60 eGFR 115.3 > 60 45 Laboratory test finding 08/14/2009 Amylase 60 U/L 30-125 Lipase 29 U/L 22-51 Urinalysis W/Microscopic 08/14/2009 Ua Color YELLOW Yellow Appearance-Urine CLEAR Clear Specific Lapaz-Ur 1.025 1.010-1.030 Esterase-Urine 1+ Negative Nitrite NEGATIVE Negative Xrgwkdwajztc-Ga-EPE NEGATIVE Negative Protein-Urine 1+ Negative PH-Urine 6.5 5-9 Blood-Urine NEGATIVE Negative Ketones-Urine NEGATIVE Negative Bilirubin-Ur NEGATIVE Negative Glucose-Urine NEGATIVE Negative WBC-Urine 5-10 0-5 RBC-Urine 0-2 0-2 Mucus Urine SMALL None Epith Cells-Ur MANY None Bacteria-Urine 3+ None (HCG) Urine 08/14/2009 Specific Lapaz 1.025 1.010-1.030 Urine NEGATIVE Negative 46 Laboratory test finding 08/14/2009 Urine Culture Sensitivi NORMAL JAI 47 Laboratory test finding 11/11/2003 Test, Urine NEG Laboratory test finding 08/17/2003 HCG DIP Test NEG Neg Laboratory test finding 08/17/2003 Test, Urine neg Urine DIP 08/17/2003 Leukocytes NEG Neg Urine Nitrites NEG Neg Urine pH 5 5-6 Total Protein, Urine NEG Neg Urine Glucose NORM Norm Urine Ketones NEG Neg Urobolinogen NORM Norm Urine Bilirubin NEG Neg Urine Blood NEG Neg Specific Lapaz NA Low 1.01-1.02 Laboratory test finding 06/23/2003 Strep Screen NEG Neg GC/Chlamydia Dna Probe 02/03/2003 Chlamydia By Dna Probe NEGATIVE Negative 48 GC By Dna Probe NEGATIVE Negative 49 Laboratory test finding 02/03/2003 Thin Layer Pap REC'D-SEE IMAGE 50 W/Reflex To HPV For ASCUS Urine DIP 02/02/2003 Leukocytes 2+ High Neg Urine Nitrites neg Neg Urine pH 5 5-6 Total Protein, Urine NEG Neg Urine Glucose NORM Norm Urine Ketones NEG Neg Urobolinogen NORM Norm Urine Bilirubin NEG Neg Urine Blood TRACE Neg Laboratory test finding 02/02/2003 Test, Urine NEG Laboratory test finding 12/11/2002 Strep Screen NEG Neg Laboratory test finding 09/08/2002 HCG DIP Test NEG Neg Laboratory test finding 09/06/2002 Urine Culture FINAL 51 Urine DIP 09/04/2002 Leukocytes 2+ High Neg Urine Nitrites NL Neg Urine pH 5 5-6 Total Protein, Urine trace Neg Urine Glucose NL Norm Urine Ketones NL Neg Urobolinogen NL Norm Urine Bilirubin NL Neg Urine Blood NL Neg Specific Lapaz NL Low 1.01-1.02 Laboratory test finding 02/17/2002 Strep Screen NEG Neg Beta Strep Group 02/02/2002 Beta Strep-Ampicillin PRELIMINARY Laboratory test finding 01/04/2002 Strep Screen NEG Neg Laboratory test finding 01/04/2002 Nasal Culture & Sens FINAL 1 Results suggest response to immunization or prior exposure to the virus. REFERENCE VALUE Vaccinated: Positive (>=1.1 AI) Unvaccinated: Negative (<=0.8 AI) 2 Test Performed by: [facility] [address] [place] [address] 3 [id number] 4 Because ethnic data is not always readily available, this report includes an eGFR for both -Americans and non- Americans. The National Kidney Disease Education Program (NKDEP) does not endorse the use of the MDRD equation for patients that are not between the ages of 18 and 70, are , have extremes of body size, muscle mass, or nutritional status, or are non- or non-. According to the National Kidney Foundation, irrespective of diagnosis, the stage of the disease is based on the level of kidney function: Stage Description GFR(mL/min/1.73 m(2)) 1 Kidney damage with normal or decreased GFR 90 2 Kidney damage with mild decrease in GFR 60-89 3 Moderate decrease in GFR 30-59 4 Severe decrease in GFR 15-29 5 Kidney failure <15 (or dialysis) 5 Desirable: <150 Borderline High: 150-199 High: 200-499 Very High: >500 6 Desirable: <200 Borderline High: 200-239 High: >239 7 Low: <40 Desirable: 40-60 High: >60 8 Desirable: <100 Near Optimal: 100-129 Borderline High: 130-159 High: 160-189 Very High: >189 9 [id number] 11 SEE RESULT BELOW Name: OFELIA BORRERO : [address]: Levi Wiggins MD Acct: [id number] Unit: [id number] AGE: 31 Location: [facility] Re06/20/17 SEX: F Status: REG REF SPEC: [id number] MESERET: 06/20/17-1341 [facility] [address]: Levi Wiggins MD REQ: [id number] RECD: 06/20/17-1600 STATUS: PITO RUBALCAVA DR: Gus Liu MD _ SOURCE: GAS ANTRUM SPDESC: ORDERED: Clotest COMMENTS: [id number] Procedure Result Reported Site Clotest Final 06/21/17- 842 ML Clotest Negative * ML - Main Lab . END OF REPORT DEPARTMENT OF PATHOLOGY, [address] [place] [address] Óscar Conway M.D. Director [facility] # [id number] 12 [id number] 13 SEE RESULT BELOW Name: OFELIA BORRERO : [address]: Levi Wiggins MD Acct: [id number] Unit: [id number] AGE: 31 Location: [facility] Re06/20/17 SEX: F Status: DEP REF SPEC: [id number] MESERET: 06/20/17-1311 [facility] DR: Levi Wiggins MD REQ: [id number] RECD: 06/20/17-0574 STATUS: BRIAN RUBALCAVA DR: Gus Liu MD _ ORDERED: LEVEL 4 COMMENTS: [id number] FINAL DIAGNOSIS Esophagus, distal, biopsies: -- Gastroesophageal transition zone mucosa with moderate reflux esophagitis. -- No goblet cell/intestinal metaplasia or dysplasia identified. CLINICAL HISTORY Long history of gastroesophageal reflux disease POST-OPERATIVE DIAGNOSIS Esophagus ? erosive esophagitis Grade A, biopsied; stomach ? gastritis, biopsied; duodenum ? normal. Conclusions/Plan: Follow-up biopsy GROSS DESCRIPTION The specimen is received in formalin labeled, Biopsies of Distal Esophagus, and consists of two sloan-pink irregular soft tissue fragments measuring 0.4 x 0.3 x 0.1 cm and 0.7 x 0.2 x 0.1 cm which are submitted entirely in one cassette. Signed (signature on file) Óscar Conway MD 1402 END OF REPORT DEPARTMENT OF PATHOLOGY, [address] [place] [address] Óscar Conway M.D. Director [facility] # [id number] 14 Platelet Clumps Cellular Inter 15 SEE RESULT BELOW Name: OFELIA BORRERO : [address]: Fady Abarca MD Acct: [id number] Unit: [id number] AGE: 31 Location: ED Re06/19/17 SEX: F Status: DEP ER SPEC: [id number] MESERET: 06/19/17-1442 [facility] [address]: Krysten GREEN REQ: [id number] RECD: 06/19/17 STATUS: PITO RUBALCAVA DR: Gus Abarca MD _ SOURCE: URINE SPDESC: ORDERED: Urine Culture Procedure Result Reported Site Urine Culture Final 06/21/17- 0858 ML No growth of clinically significant organisms * ML - Main Lab . END OF REPORT DEPARTMENT OF PATHOLOGY, [address] [place] [address] Óscar Conway M.D. Director [facility] # [id number] 16 Low risk: <1.00 Average risk: 1.00-3.00 High risk: >3.00 17 Because ethnic data is not always readily available, this report includes an eGFR for both -Americans and non- Americans. The National Kidney Disease Education Program (NKDEP) does not endorse the use of the MDRD equation for patients that are not between the ages of 18 and 70, are , have extremes of body size, muscle mass, or nutritional status, or are non- or non-. According to the National Kidney Foundation, irrespective of diagnosis, the stage of the disease is based on the level of kidney function: Stage Description GFR(mL/min/1.73 m(2)) 1 Kidney damage with normal or decreased GFR 90 2 Kidney damage with mild decrease in GFR 60-89 3 Moderate decrease in GFR 30-59 4 Severe decrease in GFR 15-29 5 Kidney failure <15 (or dialysis) 18 Specimen Hemolyzed. Result may not be valid. Unable to report test result due to hemolysis. 19 Unable to report test result due to hemolysis. 20 <5.0 Negative 5.0 - 25.0 Indeterminate (Repeat testing recommended after 72 hours) >25.0 Positive Perimenopausal women can display HCG levels of up to 20 mIU/mL 21 GC/Chlamydia Source?: Endocervical Trichomonas Source: Endocervical 22 SEE RESULT BELOW Name: OFELIA BORRERO : [address]: Fady Abarca MD Acct: [id number] Unit: [id number] AGE: 31 Location: ED Re06/19/17 SEX: F Status: DEP ER SPEC: [id number] MESERET: 06/19/17-[address]: Krysten GREEN REQ: [id number] RECD: 06/19/17 STATUS: PITO RUBALCAVA DR: Gus Abarca MD _ SOURCE: VAGINAL SPDESC: ORDERED: Rufina,Yeast DNA COMMENTS: Would you like to order Trichomonas Vaginalis RNA testing? Y Procedure Result Reported Site Gardnerella/Yeast: Vaginal DNA Final 06/20/17- 1546 ML Organism 1 Negative Gardnerella Organism 2 Negative Mayra The presence of G. vaginalis, although suggestive, is not diagnostic for bacterial vaginosis. Results should be interpreted in conjuction with other clinical and laboratory data available. Women with vaginal discharge should be evaluated for risk factors of cervicitis and pelvic inflammatory disease, toxic shock syndrome (S.aureus), and if present, evaluated for organisms not included in this assay such as N. gonorrhoeae, C. trachomatis, Mobiluncus, Mycoplasma and/or Prevotella. Mixed infections may occur. The performance of this test on patient specimens collected during or immediately after antimicrobial therapy is unknown. The presence or absence of Mayra species, or G. vaginalis cannot be used as a test for therapeutic success or failure. * - Main Lab . END OF REPORT DEPARTMENT OF PATHOLOGY, [address] [place] [address] Óscar Conway M.D. Director [facility] # [id number] 23 Desirable: <150 Borderline High: 150-199 High: 200-499 Very High: >500 24 Desirable: <200 Borderline High: 200-239 High: >239 25 Low: <40 Desirable: 40-60 High: >60 26 Desirable: <100 Near Optimal: 100-129 Borderline High: 130-159 High: 160-189 Very High: >189 27 [id number] 28 SEE RESULT BELOW Name: OFELIA BORRERO Osiris : [address]: Gus Liu MD Acct: [id number] Unit: [id number] AGE: 31 Location: [facility] Re11/22/16 SEX: F Status: REG REF SPEC: [id number] MESERET: 11/22/16-1324 [facility] [address]: Gus Liu MD REQ: [id number] RECD: 11/22/16784 STATUS: COMP _ SOURCE: THROAT SPDESC: ORDERED: Throat Culture COMMENTS: [id number] Procedure Result Reported Site Throat Culture Final 11/24/16- 1142 ML Organism 1 NORMAL JAI Quantity 2+ Throat cultures are clinically indicated to detect the presence of group A strep, arcanobacterium and yeast. In certain cases, predominating organisms will be reported. * ML - MAIN LAB ([facility]) . END OF REPORT * ML=Testing performed at Main Lab DEPARTMENT OF PATHOLOGY, [address] [place] [address] Óscar Conway M.D. Director [facility] # [id number] 29 Because ethnic data is not always readily available, this report includes an eGFR for both -Americans and non- Americans. The National Kidney Disease Education Program (NKDEP) does not endorse the use of the MDRD equation for patients that are not between the ages of 18 and 70, are , have extremes of body size, muscle mass, or nutritional status, or are non- or non-. According to the National Kidney Foundation, irrespective of diagnosis, the stage of the disease is based on the level of kidney function: Stage Description GFR(mL/min/1.73 m(2)) 1 Kidney damage with normal or decreased GFR 90 2 Kidney damage with mild decrease in GFR 60-89 3 Moderate decrease in GFR 30-59 4 Severe decrease in GFR 15-29 5 Kidney failure <15 (or dialysis) 30 99th percentile=0.04 ng/mL Troponin results at [facility] and [facility] are not interchangeable. 31 Please note: The following may produce a false positive D Dimer test: - Rheumatoid factor greater than 60 IU/ml - Plasma hemoglobin greater than 0.05 gm/dl - Bilirubin greater than 50 mg/dl - Lipids greater than 1000 mg/dl - FDP greater than 20 ug/ml 32 Acute inflammation: >10.00 33 Because ethnic data is not always readily available, this report includes an eGFR for both -Americans and non- Americans. The National Kidney Disease Education Program (NKDEP) does not endorse the use of the MDRD equation for patients that are not between the ages of 18 and 70, are , have extremes of body size, muscle mass, or nutritional status, or are non- or non-. According to the National Kidney Foundation, irrespective of diagnosis, the stage of the disease is based on the level of kidney function: Stage Description GFR(mL/min/1.73 m(2)) 1 Kidney damage with normal or decreased GFR 90 2 Kidney damage with mild decrease in GFR 60-89 3 Moderate decrease in GFR 30-59 4 Severe decrease in GFR 15-29 5 Kidney failure <15 (or dialysis) 34 SEE RESULT BELOW Name: OFELIA BORRERO : [address]: Gus Liu MD Acct: [id number] Unit: [id number] AGE: 30 Location: [facility] Re10/19/15 SEX: F Status: REG REF SPEC: [id number] MESERET: 10/19/15-[address]: Gus Liu MD REQ: [id number] RECD: 10/19/15 STATUS: COMP _ SOURCE: URINE SPDESC: ORDERED: Urine Culture COMMENTS: [id number] Procedure Result Reported Site Urine Culture Final 10/21/15- 1102 ML No Growth (<1,000 CFU/mL) * ML - MAIN LAB ([facility]) . END OF REPORT * ML=Testing performed at Main Lab DEPARTMENT OF PATHOLOGY, [address] [place] [address] Óscar Conway M.D. Director [facility] # [id number] 35 SEE RESULT BELOW Name: OFELIA BORRERO : [address]: Denice Gan NP Acct: [id number] Unit: [id number] AGE: 30 Location: [facility] Re09/29/15 SEX: F Status: REG REF SPEC: [id number] MESERET: 09/29/15-[address]: Denice Gan NP REQ: [id number] RECD: 09/29/15 STATUS: SOUT _ ORDERED: IMAGE ANALYSIS, HPV/Thin Prep, HPV 16/18 GENE COMMENTS: [id number] FINAL DIAGNOSIS Negative for Intraepithelial lesion or Malignancy A. Ectocervical/Endocervical Specimen Adequacy: Satisfactory of evaluation Transformation zone component identified Patient Information: HPV: High risk HPV RNA testing regardless of pap results. HPV 16/18 Genotype Reflex Actual Specimen Date: 09/29/15 Last Menstrual Date: 09/29/15 Date Time Test Result Flag (u) Normal Range 09/29/15 1014 HPV RNA RFLX GE Negative Negative The high-risk HPV types detected by the assay include: 16, 18, 31, 33, 35, 39, 45, 51, 52, 56, 58, 59, 66, and 68. Signed (signature on file) KRISTOPHER Connor (ASCP) 10/01 1212 This Pap test was evaluated with the assistance of the ThinPrep Test Imaging System. Due to cytologic findings at the storage garage manager microscope, comprehensive manual rescreening by a Rug Dyer Helper may be required. The Pap Smear is a screening test designed to aid in the detection of premalignant and malignant conditions of the uterine cervix. It is not a diagnostic procedure and should not be used as the sole means of detecting cervical cancer. Both false- positive and false- negative reports do occur. Depending on your risk status, a Pap smear should be obtained and evaluated every 1-3 years. END OF REPORT * ML=Testing performed at Main Lab DEPARTMENT OF PATHOLOGY, [address] [place] [address] Óscar Conway M.D. Director [facility] # [id number] 36 The high-risk HPV types detected by the assay include: 16, 18, 31, 33, 35, 39, 45, 51, 52, 56, 58, 59, 66, and 68. 37 SEE RESULT BELOW Name: OFELIA BORRERO Osiris : [address]: Gus Liu MD Acct: [id number] Unit: [id number] AGE: 30 Location: [facility] Re09/22/15 SEX: F Status: REG REF SPEC: [id number] MESERET: 09/22/15-[address] [facility] [address]: Gus Liu MD REQ: [id number] RECD: 09/22/154800 STATUS: COMP _ SOURCE: URINE SPDESC: ORDERED: Urine Culture COMMENTS: [id number] Procedure Result Reported Site Urine Culture Final 09/23/15- 1204 ML No growth of clinically significant organisms * ML - MAIN LAB ([facility]) . END OF REPORT * ML=Testing performed at Main Lab DEPARTMENT OF PATHOLOGY, [address] [place] [address] Óscar Conway M.D. Director [facility] # [id number] 38 ABSENT MANY (GREATER THAN 5/HPF) ABSENT 39 . A negative result does not preclude the presence of a C.trachomatis or N.gonorrhoeae infection because results are dependent on adequate specimen collection, absence of inhibitors, and sufficient rRNA to be detected. Test results may be affected by improper specimen collection, improper specimen storage, technical error, or specimen mixup. . 40 . A negative result does not preclude the presence of a C.trachomatis or N.gonorrhoeae infection because results are dependent on adequate specimen collection, absence of inhibitors, and sufficient rRNA to be detected. Test results may be affected by improper specimen collection, improper specimen storage, technical error, or specimen mixup. . 41 Anion gap measurement may be of limited value in the presence of any alkalosis, especially in a combined acid base disorder. . 42 Note change in reference range as of 11/26/07. The change was based on recommendations from the [place] [employer]. 43 Please note change in reference range effective 07 . 44 A metabolite of Naproxen, O-desmethylnaproxen, has been shown to interfere with the Jendrassik-Mirella method for measuring total bilirubin. Samples from patients who have taken Naproxen have shown spurious elevation in total bilirubin levels. 45 Because ethnic data is not always readily available, this report includes an eGFR for both -Americans and non- Americans. The National Kidney Disease Education Program (NKDEP) does not endorse the use of the MDRD equation for patients that are not between the ages of 18 and 70, are , have extremes of body size, muscle mass, or nutritional status, or are non- or non-. According to the National Kidney Foundation, irrespective of diagnosis, the stage of the disease is based on the level of kidney function: Stage Description GFR(mL/min/1.73 m(2)) 1 Kidney damage with normal or decreased GFR 90 2 Kidney damage with mild decrease in GFR 60-89 3 Moderate decrease in GFR 30-59 4 Severe decrease in GFR 15-29 5 Kidney failure <15 (or dialysis) 46 If is still suspected, please repeat test after 48 to 72 hours. . 47 25^10-25,000 ORGANISMS/ML (MODERATE)^CCU 48 * This method is approved for detection of Chlamydia trachomatis in Endocervical, Male Urethral and Conjunctival Specimens only. POSITIVE RESULT IN A POPULATION WITH LOW PREVALENCE OF DISEASE SHOULD BE INTERPRETED PRESUMPTIVE; INTERPRET RESULTS IN LIGHT OF HISTORY PHYSICAL FINDINGS . 49 * This method is approved for detection of Neisseria Gonnorrhoeae in Endocervical and Male Urethral Specimens only. POSITIVE RESULT IN A POPULATION WITH LOW PREVALENCE OF DISEASE SHOULD BE INTERPRETED PRESUMPTIVE; INTERPRET RESULTS IN LIGHT OF HISTORY PHYSICAL FINDINGS. . 50 TREATED FOR BV AT VISIT 51 Source: URINE,VOIDED Mixed urethral jai present. Repeat may be indicated. Procedures Date CPT Code Description Status 09/06/2016 91137 Nebulizer Treatment Completed 09/06/2016 37779 Spirometry-Bronchospasm Evaluation, Before & After Completed Bronchodilator 09/29/2015 57038 Insertion, Non-Biodegradable Drug Delivery Implant Completed Encounters Type Date Location Provider CPT E/M Dx Office Visit 09/03/2017 10:45a [place] [address] Z02.1 E66.8 K25.9 Z11.1 Office Visit 05/01/2017 10:30a [place] [address] Z82.49 Z72.0 J06.9 F32.9 Office Visit 04/17/2017 11:00a [place] [address] K21.9 J45.998 Z23 Office Visit 03/05/2017 4:45p [place] [address] F32.9 L71.9 J31.0 Office Visit 11/22/2016 11:45a [place] [address] J02.9 Office Visit 11/06/2016 10:45a [place] [address] K02.9 Office Visit 09/06/2016 2:00p [place] [address] Z92.0 K02.9 F17.210 R06.2 Office Visit 08/06/2016 11:15a Main Office Denice Gan [facility]- 34915 K02.9 Z11.1 Office Visit 05/01/2016 9:00a [place] [address] J18.1 Office Visit 04/17/2016 10:45a [place] [address] J18.1 J01.90 Office Visit 04/11/2016 11:45a [place] [address] A09 Office Visit 03/21/2016 9:45a [place] [address] J18.1 N92.0 F43.21 Office Visit 03/14/2016 9:15a [place] [address] J18.1 F43.21 Office Visit 03/06/2016 10:45a [place] [address] F41.9 N92.0 J18.1 Office Visit 01/12/2016 10:15a [place] [address] J18.1 Office Visit 01/03/2016 11:30a [place] [address] N92.0 J20.9 Office Visit 10/19/2015 10:30a [place] [address] Q61.5 R10.30 Office Visit 09/29/2015 8:45a Main Office Denice Gan [facility] [address] Z01.419 Z30.8 Office Visit 09/27/2015 9:15a [place] [address] R10.30 Office Visit 09/22/2015 9:15a [place] [address] Q61.5 Z30.9 N39.0 Office Visit 11/11/2003 2:30p Main Office Denice Najera M.D. 75937 311 Office Visit 10/14/2003 2:15p Main Office Denice Najera M.D. 07209 311 Office Visit 08/17/2003 1:45p Main Office Fidel Vergara M.D. 66431 789.09 Office Visit 08/08/2003 11:45a Main Office Denice Najera M.D. 47259 789.06 Office Visit 07/25/2003 11:30a Main Office Denice Najera M.D. 73301 789.06 Office Visit 06/23/2003 2:15p Main Office Mildred HernandezPLashondaCLashonda 18150 462 Office Visit 06/01/2003 11:00a Main Office Denice Najera M.D. 84485 784.0 Office Visit 04/29/2003 4:30p Main Office Denice Najera M.D. 77466 372.00 Office Visit 04/16/2003 10:15a Main Office Heather Adkins M.D. 14607 465.9 Office Visit 02/17/2003 3:15p Main Office Seth HernandezN.P.CLashonda 27409 V25.9 078.11 Office Visit 02/03/2003 10:15a Main Office Seth HernandezN.P.CLashonda 83515 616.10 789.04 078.11 Office Visit 02/02/2003 10:45a Main Office Fidel Vergara M.D. 96892 789.04 Office Visit 12/24/2002 11:30a Main Office Heather Adkins M.D. 85635 786.05 300.02 Office Visit 12/11/2002 11:00a Main Office Johnny Spaulding M.D. 01551 462 Office Visit 09/08/2002 9:15a Main Office Denice Najera M.D. 47055 789.04 564.1 Office Visit 09/04/2002 10:15a Main Office Roseann Curry M.D. 89129 789.07 Office Visit 04/23/2002 4:30p Main Office Denice Najera M.D. 53832 311 789.07 Office Visit 03/19/2002 4:00p Main Office Denice Najera M.D. 66774 311 465.9 Office Visit 02/17/2002 12:00p Main Office Denice Najera M.D. 46688 462 311 Office Visit 01/27/2002 11:15a Main Office Denice Najera M.D. 99468 372.30 Office Visit 11/02/2001 4:45p Johnny Spaulding M.D. 47947 461.9 Plan of Care 09/24/2017 - Gus Liu MDF33.1 Major depressive disorder, recurrent, moderateNew Medication:Escitalopram Oxalate 10 mgComments:She went off the Lexapro because she felt like she didn't need it anymore. Now things are more stressful again, it looks like there'll be another in her close relationships.I recommended she restart at the previous dose that was working well for her.
--- NOTE | 2017-10-18 10:54 | RAD ---
INDICATION: Pain and swelling 2 days after a fall COMPARISON: None. TECHNIQUE: 3 views of the right ankle were obtained. FINDINGS: The bones are normal alignment. Joint spaces appear maintained. No fracture is seen. IMPRESSION: Normal ankle radiograph. If the patient's symptoms persist, follow-up imaging is recommended.
[2017-10-18 11:56] VITALS: BP 128/77
--- NOTE | 2017-10-18 15:38 | ED ---
Lower Extremity - HPI Summary HPI Summary: Patient is a 32-year-old female who presents emergency department for a right ankle injury that occurred 2 days ago. Patient states she was walking and twisted right ankle and continues to pain. Symptoms are mild in severity. Walking makes symptoms worse. Rest makes symptoms better. - History of Current Complaint Chief Complaint: EDExtremityLower Stated Complaint: RT ANKLE INJURY Time Seen by Provider: 10/18/17 10:08 Hx Obtained From: Patient Hx Last Menstrual Period: ended August 30 Pain Intensity: 2 Pain Scale Used: 0-10 Numeric - Allergies/Home Medications Allergies/Adverse Reactions: Allergies Allergy/AdvReac Type Severity Reaction Status Date / Time Adhesive Tape AdvReac Severe Rash Verified 10/18/17 09:34 MS Azithromycin AdvReac Intermediate Stomach Verified 10/18/17 09:34 [From Zithromax] Cramps MS Penicillins [Penicillins] AdvReac Intermediate UPset Verified 10/18/17 09:34 stomach MS Sulfa Drugs [Sulfa Drugs] AdvReac Intermediate Stomach Verified 10/18/17 09: 34 Cramps /GI upset cillins* AdvReac Intermediate Stomach Uncoded 10/18/17 09:34 Cramps / GI upset PMH/Surg Hx/FS Hx/Imm Hx Previously Healthy: Yes Endocrine/Hematology History: Denies: Hx Anticoagulant Therapy, Hx Diabetes, Hx Thyroid Disease Cardiovascular History: Denies: Hx Hypertension, Hx Pacemaker/ICD Respiratory History: Reports: Hx Asthma Denies: Hx Chronic Obstructive Pulmonary Disease (COPD) GI History: Denies: Hx Gall Bladder Disease, Hx Gastroesophageal Reflux Disease, Hx Ulcer History: Denies: Hx Renal Disease Musculoskeletal History: Reports: Hx Tendonitis - hands - followed by Rodrigo, Other Musculoskeletal History - fibromyalgia, chronic pain syndrome Sensory History: Reports: Hx Contacts or Glasses Denies: Hx Hearing Aid Opthamlomology History: Reports: Hx Contacts or Glasses Neurological History: Denies: Hx Dementia, Hx Seizures Psychiatric History: Reports: Hx Panic Disorder - Surgical History Surgery Procedure, Year, and Place: [facility] Infectious Disease History: No Infectious Disease History: Denies: Hx Clostridium Difficile, Hx Hepatitis, Hx Human Immunodeficiency Virus (HIV), Hx of Known/Suspected MRSA, Hx Shingles, Hx Tuberculosis, Hx Known/ Suspected VRE, Hx Known/Suspected VRSA, History Other Infectious Disease, Traveled Outside the [place] in Last 30 Days - Family History Known Family History: Positive: Other - Parkinson's and Fibromyalgia - Social History Occupation: Employed Full-time Lives: With Family Alcohol Use: None Substance Use Type: Reports: None Hx Tobacco Use: Yes Smoking Status (MU): Current Every Day Smoker Type: Cigarettes Amount Used/How Often: less than 1/2 ppd Length of Time of Smoking/Using Tobacco: 6 years Have You Smoked in the Last Year: Yes Review of Systems Positive: Other - right ankle pain Negative: Weakness, Paresthesia, Numbness All Other Systems Reviewed And Are Negative: Yes Physical Exam Triage Information Reviewed: Yes Vital Signs On Initial Exam: Initial Vitals Temp Pulse Resp BP Pulse Ox 97.8 F 79 17 125/65 99 10/18/17 09:30 10/18/17 09:30 10/18/17 09:30 10/18/17 09:30 10/18/17 09:30 Vital Signs Reviewed: Yes Appearance: Positive: Well-Appearing - Patient lying in bed in no acute distress. Daughter present. Skin: Positive: Warm, Dry Head/Face: Positive: Normal Head/Face Inspection Eyes: Positive: Normal Neck: Positive: Supple Musculoskeletal: Positive: Other - Pain on palpation to the medial right Eliopoulos. Achilles tendon is intact. No palpable foot pain or pain to the base of the fifth metatarsal. No proximal knee or tib-fib pain. Neurological: Positive: Normal, CN Intact II-III Psychiatric: Positive: Affect/Mood Appropriate Procedures - Splinting Right Lower Extremity Pre-Made Type: air splint Pre-Proc Neuro Vasc Exam: normal Post-Proc Neuro Vasc Exam: normal Diagnostics - Vital Signs Vital Signs Temp Pulse Resp BP Pulse Ox 10/18/17 11:51 98.3 F 66 18 128/77 98 10/18/17 09:30 97.8 F 79 17 125/65 99 - Laboratory Lab Statement: Any lab studies that have been ordered have been reviewed, and results considered in the medical decision making process. Lower Extremity Course/Dx - Course Course Of Treatment: Patient presenting for ongoing right ankle pain after injury. X-rays are negative for fracture or dislocation, reading per radiology. Patient was placed. Advised patient anti-inflammatories. To ice and elevate. To follow-up with PCP if pain continues. Patient understands and agrees with plan. - Diagnoses Differential Diagnosis/HQI/PQRI: Positive: Contusion, Dislocation, Fracture ( Closed), Sprain, Strain Provider Diagnoses: Ankle sprain Discharge - Sign-Out/Discharge Documenting (check all that apply): Patient Departure - Discharge Plan Condition: Good Disposition: HOME Patient Education Materials: Ankle Sprain (ED) Referrals: Gus Liu MD [Primary Care Provider] - Additional Instructions: Follow up with your PCP if pain persist Wear splint for comfort Ice and elevate Tylenol or Motrin for pain as directd - Billing Disposition and Condition Condition: GOOD Disposition: Home
== END 2017-10-18 11:51 | disposition home or self-care (01) ==
LOC: ED 09:20
DX: S93.401A Sprain of unspecified ligament of right ankle, initial encounter (principal); X50.0XXA Overexertion from strenuous movement or load, initial encounter; Y93.01 Activity, walking, marching and hiking; Y92.9 Unspecified place or not applicable; F17.210 Nicotine dependence, cigarettes, uncomplicated; Z88.3 Allergy status to other anti-infective agents; Z88.0 Allergy status to penicillin; Z88.2 Allergy status to sulfonamides
CPT/HCPCS: 99282

== ENCOUNTER 2019-01-07 10:41 | Emergency (ER) | payer OTHER ==
[2019-01-07 10:55] VITALS: BP 143/79
[2019-01-07 13:10] LABS: Influenza A Molecular NEGATIVE (Negative); Influenza B Molecular NEGATIVE (Negative)
--- NOTE | 2019-01-08 07:03 | ED ---
Throat Pain/Nasal Congestion - HPI Summary HPI Summary: Patient is a 33-year-old female who presents emergency department for ongoing sinus congestion/pressure, cough, sore throat for about one week. Family members sick with similar symptoms. Patient notes a history of sinusitis and otitis media. Has been taking [id number] cold medicine with minimal improvement. Symptoms are mild in severity. No current modifying factors. - History of Current Complaint Chief Complaint: EDFluSymptoms Time Seen by Provider: 01/07/19 12:36 Hx Obtained From: Patient - Allergies/Home Medications Allergies/Adverse Reactions: Allergies Allergy/AdvReac Type Severity Reaction Status Date / Time azithromycin Allergy Stomach Verified 01/07/19 12:14 Cramps Penicillins Allergy Unknown Verified 01/07/19 12:14 Reaction Details Sulfa (Sulfonamide Allergy Stomach Verified 01/07/19 12:14 Antibiotics) Cramps Adhesive Tape AdvReac Severe Rash Verified 01/07/19 12:14 PMH/Surg Hx/FS Hx/Imm Hx Previously Healthy: Yes Endocrine/Hematology History: Denies: Hx Anticoagulant Therapy, Hx Diabetes, Hx Thyroid Disease Cardiovascular History: Denies: Hx Hypertension, Hx Pacemaker/ICD Respiratory History: Reports: Hx Asthma Denies: Hx Chronic Obstructive Pulmonary Disease (COPD) GI History: Denies: Hx Gall Bladder Disease, Hx Gastroesophageal Reflux Disease, Hx Ulcer History: Denies: Hx Renal Disease Musculoskeletal History: Reports: Hx Tendonitis - hands - followed by Rodrigo, Other Musculoskeletal History - fibromyalgia, chronic pain syndrome Sensory History: Reports: Hx Contacts or Glasses Denies: Hx Hearing Aid Opthamlomology History: Reports: Hx Contacts or Glasses Neurological History: Denies: Hx Dementia, Hx Seizures Psychiatric History: Reports: Hx Panic Disorder - Surgical History Surgery Procedure, Year, and Place: [facility] Infectious Disease History: No Infectious Disease History: Denies: Hx Clostridium Difficile, Hx Hepatitis, Hx Human Immunodeficiency Virus (HIV), Hx of Known/Suspected MRSA, Hx Shingles, Hx Tuberculosis, Hx Known/ Suspected VRE, Hx Known/Suspected VRSA, History Other Infectious Disease, Traveled Outside the [place] in Last 30 Days - Family History Known Family History: Positive: Other - Parkinson's and Fibromyalgia, Non- Contributory - Social History Occupation: Unemployed Lives: With Family Alcohol Use: None Substance Use Type: Reports: None Hx Tobacco Use: Yes Smoking Status (MU): Current Every Day Smoker Type: Cigarettes Amount Used/How Often: less than 1/2 ppd Length of Time of Smoking/Using Tobacco: 6 years Have You Smoked in the Last Year: Yes Review of Systems Constitutional: Negative Eyes: Negative Positive: Ear Ache, Nasal Discharge Cardiovascular: Negative Positive: Cough. Negative: Shortness Of Breath Gastrointestinal: Negative Genitourinary: Negative Skin: Negative Neurological: Negative All Other Systems Reviewed And Are Negative: Yes Physical Exam Triage Information Reviewed: Yes Vital Signs On Initial Exam: Initial Vitals Temp Pulse Resp BP Pulse Ox 97.9 F 84 18 143/79 97 01/07/19 10:53 01/07/19 10:53 01/07/19 10:53 01/07/19 10:53 01/07/19 10:53 Vital Signs Reviewed: Yes Appearance: Positive: Well-Appearing - Pt. sitting on bed in NAD. Family present. Skin: Positive: Warm, Dry Head/Face: Positive: Normal Head/Face Inspection Eyes: Positive: Normal, EOMI, JAHAIRA, Conjunctiva Clear ENT: Positive: Nasal congestion, Sinus tenderness, Other - TM's mild erythematous bilaterally. Neck: Positive: Supple, Nontender, No Lymphadenopathy Respiratory/Lung Sounds: Positive: Clear to Auscultation, Breath Sounds Present. Negative: Decreased Breath Sounds, Rales, Rhonchi, Stridor, Wheezes Cardiovascular: Positive: Normal, RRR Musculoskeletal: Positive: Normal, Strength/ROM Intact Neurological: Positive: Normal, CN Intact II-III Psychiatric: Positive: Affect/Mood Appropriate Procedures - Sedation Patient Received Moderate/Deep Sedation with Procedure: No Diagnostics - Vital Signs Vital Signs Temp Pulse Resp BP Pulse Ox 01/07/19 14:04 97.4 F 64 18 143/79 100 01/07/19 10:53 97.9 F 84 18 143/79 97 - Laboratory Lab Results: Lab Results 01/07/19 Range/Units 12:20 Influenza A (Rapid) Negative (Negative) Influenza B (Rapid) Negative (Negative) Lab Statement: Any lab studies that have been ordered have been reviewed, and results considered in the medical decision making process. EENT Course/Dx - Course Course Of Treatment: With the patient for sinusitis with doxycycline ( penicillin allergies). Advised to continue Flonase. Anti-inflammatories as directed. Close follow-up with PCP and return the ER if symptoms change or worsen. Patient understands and agrees with plan. - Differential Diagnoses Differential Diagnoses: Otitis Externa, Otitis Media, Pharyngitis, URI/ Bronchitis - Diagnoses Provider Diagnoses: Sinusitis Discharge ED - Sign-Out/Discharge Documenting (check all that apply): Patient Departure - Discharge Plan Condition: Good Disposition: HOME Prescriptions: DOXYcycline CAP(*) [DOXYcycline 100MG CAP(*)] 100 mg PO BID #20 cap Patient Education Materials: Sinusitis (ED) Referrals: Gus Liu MD [Primary Care Provider] - Additional Instructions: Follow up with PCP if symptoms persist Antibiotic as directed Continue flonase as directed Motrin for pain as directed Return to ER if symptoms change or worsen - Billing Disposition and Condition Condition: GOOD Disposition: Home
== END 2019-01-07 14:04 | disposition home or self-care (01) ==
LOC: ED 10:41
DX: J32.9 Chronic sinusitis, unspecified (principal); J45.909 Unspecified asthma, uncomplicated; F41.0 Panic disorder [episodic paroxysmal anxiety]; F17.210 Nicotine dependence, cigarettes, uncomplicated; Z88.1 Allergy status to other antibiotic agents; Z88.0 Allergy status to penicillin; Z88.2 Allergy status to sulfonamides; Z91.048 Other nonmedicinal substance allergy status; Z79.899 Other long term (current) drug therapy
CPT/HCPCS: 99282

== ENCOUNTER 2019-02-18 07:34 | Emergency (ER) | payer OTHER ==
[2019-02-18 09:21] VITALS: BP 123/89
--- NOTE | 2019-02-18 09:36 | ED ---
Lower Extremity - HPI Summary HPI Summary: This patient is a 33-year-old female presenting to the ED with right second toe pain after dropping a heavy water bottle over the area. Pain is 10/10. Remains ambulatory. Denies taking any medication for this, however is a pain patient and takes multiple medications for her fibromyalgia. - History of Current Complaint Chief Complaint: EDExtremityLower Stated Complaint: POSS BROKEN TOES PER PT Time Seen by Provider: 02/18/19 07:47 Hx Obtained From: Patient Hx Last Menstrual Period: ended August 30 Onset of Pain: Minutes Onset/Duration: Minutes Severity Initially: Moderate Severity Currently: Moderate Pain Intensity: 6 Pain Scale Used: 0-10 Numeric Timing: Constant Location: Is Discrete @ - second toe of the R foot Character Of Pain: Aching Associated Signs And Symptoms: Positive: Bruising. Negative: Swelling, Redness Aggravating Factor(s): Standing, Ambulation Alleviating Factor(s): Rest Able to Bear Weight: Yes - Allergies/Home Medications Allergies/Adverse Reactions: Allergies Allergy/AdvReac Type Severity Reaction Status Date / Time azithromycin Allergy Stomach Verified 02/18/19 07:57 Cramps Penicillins Allergy Unknown Verified 02/18/19 07:57 Reaction Details Sulfa (Sulfonamide Allergy Stomach Verified 02/18/19 07:57 Antibiotics) Cramps Adhesive Tape AdvReac Severe Rash Verified 02/18/19 07:57 PMH/Surg Hx/FS Hx/Imm Hx Previously Healthy: Yes Endocrine/Hematology History: Denies: Hx Anticoagulant Therapy, Hx Diabetes, Hx Thyroid Disease Cardiovascular History: Denies: Hx Hypertension, Hx Pacemaker/ICD Respiratory History: Reports: Hx Asthma Denies: Hx Chronic Obstructive Pulmonary Disease (COPD) GI History: Denies: Hx Gall Bladder Disease, Hx Gastroesophageal Reflux Disease, Hx Ulcer History: Denies: Hx Renal Disease Musculoskeletal History: Reports: Hx Tendonitis - hands - followed by Rodrigo, Other Musculoskeletal History - fibromyalgia, chronic pain syndrome Sensory History: Reports: Hx Contacts or Glasses Denies: Hx Hearing Aid Opthamlomology History: Reports: Hx Contacts or Glasses Neurological History: Denies: Hx Dementia, Hx Seizures Psychiatric History: Reports: Hx Panic Disorder - Surgical History Surgery Procedure, Year, and Place: [facility] - Immunization History Hx Pertussis Vaccination: No Immunizations Up to Date: Yes Infectious Disease History: No Infectious Disease History: Denies: Hx Clostridium Difficile, Hx Hepatitis, Hx Human Immunodeficiency Virus (HIV), Hx of Known/Suspected MRSA, Hx Shingles, Hx Tuberculosis, Hx Known/ Suspected VRE, Hx Known/Suspected VRSA, History Other Infectious Disease, Traveled Outside the [place] in Last 30 Days - Family History Known Family History: Positive: Other - Parkinson's and Fibromyalgia, Non- Contributory - Social History Occupation: Unemployed Lives: With Family Alcohol Use: None Hx Substance Use: No Substance Use Type: Reports: None Hx Tobacco Use: Yes Smoking Status (MU): Former Smoker Type: Cigarettes Amount Used/How Often: less than 1/2 ppd Length of Time of Smoking/Using Tobacco: 6 years Have You Smoked in the Last Year: Yes Review of Systems Negative: Fever, Chills, Fatigue, Skin Diaphoresis Negative: Epistaxis, Dental Pain Negative: Palpitations, Chest Pain Genitourinary: Negative Positive: no symptoms reported, see HPI Negative: Arthralgia, Myalgia Skin: Negative Neurological: Negative All Other Systems Reviewed And Are Negative: Yes Physical Exam Triage Information Reviewed: Yes Vital Signs On Initial Exam: Initial Vitals Temp Pulse Resp BP Pulse Ox 97.6 F 84 18 155/94 99 02/18/19 07:53 02/18/19 07:53 02/18/19 07:53 02/18/19 07:53 02/18/19 07:53 Vital Signs Reviewed: Yes Appearance: Positive: Well-Appearing, Well-Nourished Skin: Positive: Warm, Skin Color Reflects Adequate Perfusion Head/Face: Positive: Normal Head/Face Inspection Eyes: Positive: EOMI, JAHAIRA, Conjunctiva Clear Neck: Positive: Supple, No Lymphadenopathy Respiratory/Lung Sounds: Positive: Clear to Auscultation, Breath Sounds Present Cardiovascular: Positive: Pulses are Symmetrical in both Upper and Lower Extremities Musculoskeletal: Positive: Pain @ - right second toe Psychiatric: Positive: Affect/Mood Appropriate, Depressed AVPU Assessment: Alert Procedures - Sedation Patient Received Moderate/Deep Sedation with Procedure: No Diagnostics - Vital Signs Vital Signs Temp Pulse Resp BP Pulse Ox 02/18/19 09:19 97.4 F 80 17 123/89 100 02/18/19 07:53 97.6 F 84 18 155/94 99 - Laboratory Lab Statement: Any lab studies that have been ordered have been reviewed, and results considered in the medical decision making process. Lower Extremity Course/Dx - Course Course Of Treatment: Small fracture of the distal tuft of the second toe. Small amount of bruising to the area on physical examination. Patient remains ambulatory. Parker taped the second and third toe. Patient is encouraged ibuprofen for any pain control. - Diagnoses Differential Diagnosis/HQI/PQRI: Positive: Fracture (Closed) Provider Diagnoses: Toe fracture, right Discharge ED - Sign-Out/Discharge Documenting (check all that apply): Patient Departure - Discharge Plan Condition: Stable Disposition: HOME Patient Education Materials: Toe Fracture (ED) Referrals: Gus Liu MD [Primary Care Provider] - Additional Instructions: Small fracture at the distal portion of the toe If it feels more comfortable to tape it to the adjacent toe - you may continue to do this for the next week or so Ibuprofen 600mg three times daily if you continue to have discomfort - Billing Disposition and Condition Condition: STABLE Disposition: Home - Attestation Statements Provider Attestation: pt seen by midlevel provider independently, based on their assessment, it was not necessary to present the case to me but I was available for consultation. I did not form a physician-patient relationship with the patient. The chart however, has been reviewed. am signing this note strictly in an administrative capacity.
== END 2019-02-18 09:25 | disposition home or self-care (01) ==
LOC: ED 07:34
DX: S92.531A Displaced fracture of distal phalanx of right lesser toe(s), initial encounter for closed fracture (principal); W20.8XXA Other cause of strike by thrown, projected or falling object, initial encounter; Y92.9 Unspecified place or not applicable; Z87.891 Personal history of nicotine dependence; Z88.1 Allergy status to other antibiotic agents; Z88.0 Allergy status to penicillin; Z88.2 Allergy status to sulfonamides
CPT/HCPCS: 99281

== ENCOUNTER 2019-04-14 07:29 | Emergency (ER) | payer OTHER ==
--- NOTE | 2019-04-14 07:53 | ED ---
Influenza-Like Illness - HPI Summary HPI Summary: Patient is a 33 y/o F presenting to the ED for a chief complaint of influenza- like symptoms for the last 7 days. Patient complains of shortness of breath, chest pain, and cough. She notes her chest pain worsens with lying down. Patient denies fever. She denies any alleviating factors. PMHx is significant for asthma for which she uses an inhaler. She used her inhaler for her symptoms without relief. PSHx is significant for carpal tunnel surgery. She currently has her menstrual period. Patient is a former smoker and denies alcohol or drug use. - History of Current Complaint Chief Complaint: EDFluSymptoms Time Seen by Provider: 04/14/19 07:42 Hx Obtained From: Patient Onset/Duration: Still Present Severity: Moderate Associated Signs & Symptoms: Cough - Allergy/Home Medications Allergies/Adverse Reactions: Allergies Allergy/AdvReac Type Severity Reaction Status Date / Time azithromycin Allergy Stomach Verified 04/14/19 07:38 Cramps Penicillins Allergy Unknown Verified 04/14/19 07:38 Reaction Details Sulfa (Sulfonamide Allergy Stomach Verified 04/14/19 07:38 Antibiotics) Cramps Adhesive Tape AdvReac Severe Rash Verified 04/14/19 07:38 Home Medications: Home Medications Cetirizine HCl [Zyrtec] 10 mg PO DAILY 04/14/19 [History Confirmed 04/14/19] PMH/Surg Hx/FS Hx/Imm Hx Previously Healthy: Yes Endocrine/Hematology History: Denies: Hx Anticoagulant Therapy, Hx Diabetes, Hx Thyroid Disease Cardiovascular History: Denies: Hx Hypercholesterolemia, Hx Hypertension, Hx Pacemaker/ICD Respiratory History: Reports: Hx Asthma Denies: Hx Chronic Obstructive Pulmonary Disease (COPD) GI History: Denies: Hx Gall Bladder Disease, Hx Gastroesophageal Reflux Disease, Hx Ulcer History: Denies: Hx Renal Disease Musculoskeletal History: Reports: Hx Tendonitis - hands - followed by Rodrigo, Other Musculoskeletal History - fibromyalgia, chronic pain syndrome Sensory History: Reports: Hx Contacts or Glasses Denies: Hx Legally Blind, Hx Deafness, Hx Hearing Aid Opthamlomology History: Reports: Hx Contacts or Glasses Denies: Hx Legally Blind EENT History: Denies: Hx Deafness Neurological History: Denies: Hx Dementia, Hx Seizures Psychiatric History: Reports: Hx Anxiety, Hx Depression, Hx Panic Disorder - Surgical History Surgical History: Yes Surgery Procedure, Year, and Place: bilat [facility], carpal tunnel surgery Infectious Disease History: No Infectious Disease History: Denies: Hx Clostridium Difficile, Hx Hepatitis, Hx Human Immunodeficiency Virus (HIV), Hx of Known/Suspected MRSA, Hx Shingles, Hx Tuberculosis, Hx Known/ Suspected VRE, Hx Known/Suspected VRSA, History Other Infectious Disease, Traveled Outside the [place] in Last 30 Days - Family History Known Family History: Positive: Other - Parkinson's and Fibromyalgia - Social History Occupation: Employed Full-time Alcohol Use: None Hx Substance Use: No Substance Use Type: Reports: None Hx Tobacco Use: Yes Smoking Status (MU): Former Smoker Type: Cigarettes Amount Used/How Often: less than 1/2 ppd Length of Time of Smoking/Using Tobacco: 6 years Have You Smoked in the Last Year: Yes Review of Systems Negative: Fever Positive: Chest Pain Positive: Shortness Of Breath, Cough All Other Systems Reviewed And Are Negative: Yes Physical Exam - Summary Physical Exam Summary: VITAL SIGNS: Reviewed. GENERAL: Patient is a well-developed and nourished FEMALE who is lying comfortable in the stretcher. Patient is not in any acute respiratory distress. HEAD AND FACE: No signs of trauma. No ecchymosis, hematomas or skull depressions. No sinus tenderness.. EYES: PERRLA, EOMI x 2, No injected conjunctiva, no nystagmus. EARS: Hearing grossly intact. Ear canals and tympanic membranes are within normal limits. MOUTH: Oropharynx within normal limits. NECK: Supple, trachea is midline, no adenopathy, no JVD, no carotid bruit, no c- spine tenderness, neck with full ROM. CHEST: Symmetric, no tenderness at palpation. LUNGS: Clear to auscultation bilaterally. No wheezing or crackles. CVS: Regular rate and rhythm, S1 and S2 present, no murmurs or gallops appreciated. ABDOMEN: Soft, non-tender. No signs of distention. No rebound, no guarding, and no masses palpated. Bowel sounds are normal. EXTREMITIES: FROM in all major joints, no edema, no cyanosis or clubbing. NEURO: Alert and oriented x 3. No acute neurological deficits. Speech is normal and follows commands. SKIN: Dry and warm. Triage Information Reviewed: Yes Vital Signs On Initial Exam: Initial Vitals Temp Pulse Resp BP Pulse Ox 96.7 F 74 18 135/100 97 04/14/19 07:34 04/14/19 07:34 04/14/19 07:34 04/14/19 07:34 04/14/19 07:34 Vital Signs Reviewed: Yes Procedures - Sedation Patient Received Moderate/Deep Sedation with Procedure: No Diagnostics - Vital Signs Vital Signs Temp Pulse Resp BP Pulse Ox 04/14/19 07:44 80 126/84 96 04/14/19 07:43 77 97 04/14/19 07:34 96.7 F 74 18 135/100 97 - Laboratory Result Diagrams: 04/14/19 08:09 04/14/19 08:09 Lab Statement: Any lab studies that have been ordered have been reviewed, and results considered in the medical decision making process. - Radiology Chest X-ray Radiology Interpretation Completed By: Radiologist Summary of Radiographic Findings: Chest X-ray IMPRESSION: No active cardiopulmonary disease is noted. Reviewed by Dr. Terrazas. Flu Symptom Course/Dx - Course Assessment/Plan: Patient is a 33 y/o F presenting to the ED for a chief complaint of influenza-like symptoms for the last 7 days. Patient complains of shortness of breath, chest pain, and cough. She notes her chest pain worsens while lying down. Patient denies fever. She denies any alleviating factors. PMHx is significant for asthma for which she uses an inhaler. She used her inhaler for her symptoms without relief. PSHx is significant for carpal tunnel surgery. She currently has her menstrual period. Patient is a former smoker and denies alcohol or drug use. Blood work is without any significant abnormality except for glucose of 123 and influenza B. Influenza A is negative. Chest x- ray impression: No evidence for active cardiopulmonary disease. In the ED course, the patient remained stable. The patient has been having symptoms for about 7 days. Therefore, she did not have any benefits from Tamiflu. At this point, I recommended the patient to treat her symptoms symptomatically. The patient understands and agrees. She will be discharged home to follow-up with her primary care physician. I discussed all the findings and test results with the patient. Patient was instructed to return to the emergency room immediately if any of the symptoms return or worsen. Plan of care was discussed with the patient who understands and agrees. All questions were answered at patient's satisfaction. There were no further complaints or concerns. Lung exam before discharge: CTA B/L. Good air exchange. No wheezing or crackles heard. CVS: S1 and S2 present. No murmurs appreciated. Patient is alert and oriented x 3. Patient is hemodynamically stable. Patient will be discharged home with follow up her primary care provider in the next 2-3 days. - Diagnoses Differential Diagnosis/HQI/PQRI: Positive: Bronchitis, Influenza, Pneumonia, Upper Respiratory Infection Provider Diagnoses: Influenza B Discharge ED - Sign-Out/Discharge Documenting (check all that apply): Patient Departure - Discharge - Discharge Plan Condition: Stable Disposition: HOME Patient Education Materials: Influenza (ED) Referrals: Gus Liu MD [Primary Care Provider] - Additional Instructions: FOLLOW UP WITH YOUR PRIMARY CARE PROVIDER WITHIN 3 DAYS. RETURN TO THE EMERGENCY DEPARTMENT FOR ANY WORSENING OR NEW SYMPTOMS. - Billing Disposition and Condition Condition: STABLE Disposition: Home - Attestation Statements Document Initiated by Scribe: Yes Documenting Scribe: Denice Morse Provider For Whom Jeremy is Documenting (Include Credential): Edin Terrazas MD Scribe Attestation: Denice Last scribed for Edin Terrazas MD on 04/14/19 at 1833. Scribe Documentation Reviewed: Yes Provider Attestation: The documentation as recorded by the Denice garcia accurately reflects the service I personally performed and the decisions made by Edin chaudhry MD Status of Scribe Document: Viewed
[2019-04-14 08:35] LABS: ABS Eosinophils 0.3 10^3/ul (0-0.6); ABS Lymphocytes 1.8 10^3/ul (1.0-4.8); ABS Monocytes 0.4 10^3/ul (0-0.8); ABS Neutrophils 1.4 10^3/ul (1.5-7.7); Eosinophil % 6.9 %; Hematocrit 40 % (35-47); Hemoglobin 13.4 g/dL (12.0-16.0); Lymphocyte % 45.8 %; Mean Corpuscular HGB Conc 34 g/dL (31-36); Mean Corpuscular Hemoglobin 30 pg (27-31); Mean Corpuscular Volume 90 fL (80-97); Mean Platelet Volume 8.8 fL (7.4-10.4); Nucleated Red Blood Cells % 0.1; Platelet Count 155 10^3/uL (150-450); Red Blood Count 4.41 10^6 /uL (3.70-4.87); Red Cell Distribution Width 15 % (10-15); White Blood Count 3.8 10^3/uL (3.5-10.8)
[2019-04-14 08:50] LABS: ALT 29 U/L (7-52); AST 21 U/L (13-39); Albumin 3.9 g/dL (3.2-5.2); Albumin/Globulin Ratio 1.4 (1-3); Alkaline Phosphatase 73 U/L (34-104); Anion Gap 6 mmol/L (2-11); BUN/Creatinine Ratio 12.8 (8-20); Blood Urea Nitrogen 11 mg/dL (6-24); C Reactive Protein 1.62 mg/L (<8.01); CO2 Carbon Dioxide 25 mmol/L (22-32); Calcium 8.6 mg/dL (8.6-10.3); Chloride 108 mmol/L (101-111); EGFR African American 93.1 (>60); Globulin 2.7 g/dL (2-4); Glucose 123 mg/dL (70-100); Sodium 139 mmol/L (135-145); Total Protein 6.6 g/dL (6.4-8.9)
[2019-04-14 08:54] LABS: Influenza B Molecular POSITIVE (Negative)
[2019-04-14 08:54] LABS: HCG Pregnancy < 0.60 mIU/mL
[2019-04-14 10:31] VITALS: BP 120/74
== END 2019-04-14 10:31 | disposition home or self-care (01) ==
LOC: ED 07:29
DX: J10.1 Influenza due to other identified influenza virus with other respiratory manifestations (principal); F41.9 Anxiety disorder, unspecified; F32.9 Major depressive disorder, single episode, unspecified; J45.909 Unspecified asthma, uncomplicated; Z87.891 Personal history of nicotine dependence; Z88.0 Allergy status to penicillin; Z88.1 Allergy status to other antibiotic agents; Z88.2 Allergy status to sulfonamides
CPT/HCPCS: 36415; 71046; 80053; 84702; 85025; 86140; 87651; 99283